=== PATIENT | female | born 2000 | race Caucasian/White ===

== ENCOUNTER → 2020-04-21 | Outpatient (CLI) | payer OTHER, SELFPAY | END | disposition home or self-care (01) | PROVIDERS: Visit Provider Obstetrics & Gynecology | DX: Z12.4 Encounter for screening for malignant neoplasm of cervix (principal); Z11.3 Encounter for screening for infections with a predominantly sexual mode of transmission ==

== ENCOUNTER 2020-07-12 05:55 | Emergency (ER) | payer OTHER, SELFPAY ==
[2020-07-12 05:56] VITALS: BP 135/80; PULSE 74; RESP 15; TEMP 36.4; O2SAT 100; BMI 21.1
[2020-07-12 05:59] VITALS: BP 135/80; PULSE 74; RESP 15; TEMP 36.4; O2SAT 100
--- NOTE | 2020-07-12 06:06 | ED.VIS.GEN ---
History of Present Illness Chief Complaint: Complaint Informant: Patient Onset: Today Context: Sudden Onset Timing: Continuous Current Severity: Moderate Maximum Severity: Moderate Narrative: The patient is a 20-year-old female that presents to the emergency department with dysuria. The patient states her symptoms began rather acutely overnight. She states that she has had urinary frequency and urgency. She denies any fevers or chills. She states that she tried to drink a lot of water hoping would help the symptoms but it seemed to make them worse. She has no significant medical history. She has no history of immunosuppression. She is on no daily medications. She does admit to sexual activity but denies any bleeding or discharge. Prior similar symptoms: No Recent Illness/Hospitalization: No Past Medical History - Allergies and Home Meds Allergies/Adverse Reactions: Allergies No Known Allergies Allergy (Verified 07/12/20 05:59) Primary Care Physician: Lilliana Crocker CNM [Primary Care Provider] - Prior records reviewed: Yes Past Medical History: None Surgical History: no surgical history Smoking Status: Never smoker Review of Systems General: Denies: Chills, Fever, Sweats Eyes: Denies: Visual changes - bilaterally, Diplopia ENT: Denies: Rhinorrhea, Sore throat Cardiovascular: Denies: Chest pain, Palpitations Respiratory: Denies: Dyspnea, Cough, Dyspnea on exertion Gastrointestinal: Denies: Abdominal pain, Nausea, Vomiting, Diarrhea, Melena, Hematochezia Genitourinary: Reports: Dysuria, Frequency. Denies: Hematuria Musculoskeletal: Denies: Back pain, Extremity Pain Skin: Denies: Rash, Wounds Neurological: Denies: Headache, Weakness, Numbness Physical Exam Vital Signs/Narrative: Vital Signs Temp Pulse Resp BP Pulse Ox 07/12/20 05:59 97.5 F L 74 15 135/80 H 100 07/12/20 05:56 97.5 F L 74 15 135/80 H 100 Inital Vital Signs reviewed: Yes General: Well nourished, Well developed, No Acute Distress Head: Normocephalic, Atraumatic Eyes: Perrl, EOMI ENT: Moist mucous membranes, No rhinorrhea Neck: Supple, Nontender Cardiovascular: Regular rate, Regular rhythm, No murmurs Respiratory: No distress, CTA bilaterally, Chest nontender Abdomen: Soft, Nontender, Nondistended, Normal bowel sounds Back: Nontender, Normal Inspection Extremities: Nontender, No edema Skin: Normal color, No rash Neurological: Alert, Oriented x3, Cranial nerves II-XII grossly intact, Normal Strength, Normal Sensation Psychological: Normal affect, Normal Mood Diagnostic/Tx/Re-eval Abnormal Lab Results 07/12/20 07/12/20 06:00 06:00 Urine Color Yellow Urine Clarity Clear Urine pH 7.0 Ur Specific [place] 1.005 Urine Protein 15 H Urine Glucose (UA) Normal Urine Ketones Negative Urine Occult Blood 250 H Urine Nitrite Negative Urine Bilirubin Negative Urine Urobilinogen Normal Ur Leukocyte Esterase 500 H Urine RBC 10-25 SEEN Urine WBC 10-25 SEEN Ur Squamous Epith Cells 0 SEEN Urine Bacteria 0 SEEN Urine Mucus 0 SEEN Urine Test Negative - Medical Decision Making The patient presents with symptoms consistent with acute cystitis. She is had no flank pain. She is had no fever or chills. Her examination is benign. The patient was treated with Pyridium. Urine was obtained. There is evidence of infection. Patient is not . I will treat her with Macrobid and continue Pyridium for symptom control. She was counseled on advancing fluids. She will be discharged home. Impression 1. Acute cystitis ED Disposition - Plan for ED Patient: Instructions: ED CYSTITIS Female Adult Prescriptions: Nitrofurantoin Macrocrystals [Macrobid] 100 mg PO Q12 #14 cap Prescription Printed Phenazopyridine HCl [Pyridium] 200 mg PO BID PRN PRN #10 tab PRN Reason: Pain Prescription Printed Referrals: Lilliana Crocker CNM [Primary Care Provider] -
[2020-07-12] MEDS: Phenazopyridine 95 MG Tablet 190 MG PO (06:07)
[2020-07-12 06:09] LABS: Bacteria 0 SEEN /hpf (None Seen); Color, Urine Yellow (Yellow); Glucose, Dipstick Normal (Normal); Ketone-Dipstick Negative (Negative); Leukocyte Esterase-Dipstick 500 /ul (Negative); Mucous, Urine 0 SEEN /hpf (<or=2+); Nitrite-Dipstick Negative (Negative); Occult Blood-Urine 250 /ul (Negative); Protein-Dipstick 15 mg/dl (Negative); Specific Gravity, Urine 1.005 (1.002-1.030); Squamous Epithelial Cells - UA 0 SEEN /hpf (5-10); Urine Bilirubin Dipstick Negative (Negative); Urine Clarity Clear (Clear); Urine Urobilinogen Normal (Normal)
[2020-07-12 06:16] LABS: Internal QC Validated? YES +Cl - CLEAR BKGD; Pregnancy, Urine Negative Negative; Red Blood Cells-Urine 10-25 SEEN /hpf (0-5); White Blood Cells 10-25 SEEN /hpf (0-5)
[2020-07-12] MEDS: Nitrofurantoin Macrocrystals 100 MG Capsule PO (06:26)
[2020-07-12 06:33] VITALS: RESP 15
== END 2020-07-12 06:34 | disposition home or self-care (01) ==
LOC: ED 06:27
PROVIDERS: Emergency Provider Emergency Medicine
DX: N30.00 Acute cystitis without hematuria (principal)
CPT/HCPCS: 81001; 81025; 99283

== ENCOUNTER 2021-06-17 19:30 | Inpatient (IN) | payer MEDICAID, SELFPAY ==
[2021-06-17 19:36] VITALS: BMI 26.4
[2021-06-17 19:56] VITALS: PULSE 84; O2SAT 97
[2021-06-17 19:57] VITALS: TEMP 36.7
[2021-06-17 19:58] VITALS: BP 127/69; PULSE 81
[2021-06-17 20:25] LABS: Absolute Lymphocyte Count 1.66 X10^3/uL (0.83-4.51); Absolute Neutrophil Count 7.4 X10^3/uL (2.0-7.7); Basophil# 0.03 X10^3/uL; Basophil% 0.3 % (0-1); Eosinophil# 0.07 X10^3/uL; Eosinophils% 0.7 % (0-5); Hematocrit 33.9 % (37-47); Hemoglobin 11.9 g/dL (12.0-15.0); Lymphocyte # 1.66 X10^3/ul (0.83-4.51); Lymphocyte % 16.8 % (19-41); Mean Corp Hgb Conc 35.1 g/dL (32-36); Mean Corpuscular Hgb 30.7 pg (27.0-32.0); Mean Corpuscular Volume 87.6 fL (81-99); Mean Platelet Vol. 10.2 fl (6.2-12.0); Monocyte% 7.1 % (0-10); NRBC Flagged by Analyzer 0 % (0-5); Neutrophil # 7.36 X10^3/uL (2.7-7.7); Neutrophil % 74.2 % (47-70); Platelet Count 263 K/mm3 (150-450); RBC Distribution Width CV 12.7 % (11.6-14.6); RBC Distribution Width SD 40.5 fl (35.1-43.9); Red Blood Count 3.87 M/mm3 (4.2-5.4); White Blood Count 9.9 K/mm3 (4.4-11.0)
[2021-06-17] MEDS: miSOPROStol 25 MCG TABLET PO (21:28)
[2021-06-17] MEDS: Lactated Ringers 1,000 ML 50 ML IV (21:31)
[2021-06-17 21:42] VITALS: BP 104/57; PULSE 70; TEMP 36.9; O2SAT 98
[2021-06-18] VITALS (51 sets, daily range): BP systolic 96–136; BP diastolic 55–84; PULSE 57–143; TEMP 36.3–37.2; O2SAT 83–100
[2021-06-18] MEDS: miSOPROStol 25 MCG TABLET PO ×2 (01:29→05:40)
[2021-06-18 06:02] LABS: Amphetamine Urine VISTA NEGATIVE (<1000 ng/mL); Barbiturate Urine VISTA NEGATIVE (< 200 ng/mL); Benzodiazepine Urine VISTA NEGATIVE (< 200 ng/mL); Cocaine Urine VISTA NEGATIVE (< 300 ng/mL); Ecstacy Urine VISTA NEGATIVE (< 500 ng/mL); Methadone Urine VISTA NEGATIVE (< 300 ng/mL); PCP Urine VISTA NEGATIVE (< 25 ng/mL); THC Urine VISTA NEGATIVE (< 50 ng/mL); Vista UDS pH Range 6
[2021-06-18] MEDS: 0.9% Normal Saline Single 100 ML IV.SOLN. INTRA-UTER (10:37)
--- NOTE | 2021-06-18 10:43 | HP.PCM.OB_ITS ---
HPI - General General Date of Admission: 06/17/21 HPI Narrative NICHOL WALLACE, is a 21 F who presents at 41 weeks for postdates induction of labor with JOSÉ MIGUEL:06/10/21. . OB history of first trimester SAB. Pyelectasis on ultrasound but resolved on 04/20/21. Maternal Data Information JOSÉ MIGUEL Calculator Estimated Delivery Date Method Current WG Current Estimate 06/10/21 Manual 41w 1d PFSH PFSH Medical History (Updated 06/18/21 @ 10:51 by Evelyn Mora CNM) Chlamydia Family history of hearing loss at age younger than 7 years Home Medications [id number] [] 1 tab PO DAILY 06/17/21 [History Last Taken 06/16/21 21:00] Allergy/AdvReac Type Severity Reaction Status Date / Time No Known Allergies Allergy Verified 06/17/21 19:37 Surgical History (Updated 06/17/21 @ 20:16 by Ermelinda Odell) History of surgery [place] teeth removed Social History Smoking Status: Never smoker History Elective abortions Hx Para 0 Spontaneous abortions Hx # Term Pregnancies Ectopic pregnancies Hx # Pregnancies Multiple births # of living children NST FHR Rate Baby A Baseline: 125 Variability:: Moderate Accelerations:: 15 x 15 Decelerations:: Variable FHR Category:: Category II Uterine Activity:: every 2.5 to 4 minutes, moderate ROS Constitutional Constitutional: Reports systems reviewed and no addt'l complaints, except as documented; Denies headache(s) Eyes Eyes: Denies acute decrease in peripheral vision, blurry vision or change in vision ENT HEENT: Reports systems reviewed and no addt'l complaints, except as documented Cardiovascular Cardiovascular: Denies chest pain or dizziness Respiratory/Chest Respiratory/Chest: Denies cough, dyspnea, dyspnea on exertion, shortness of breath at rest or shortness of breath with exertion Gastrointestinal Gastrointestinal: Denies abdominal pain, diarrhea, nausea or vomiting Genitourinary Genitourinary: Denies abdominal discomfort or movement Musculoskeletal Musculoskeletal: Denies limited range of motion Integumentary Integumentary: Reports systems reviewed and no addt'l complaints, except as documented Neurologic Neurologic: Reports systems reviewed and no addt'l complaints, except as documented Psychiatric Psychiatric: Reports systems reviewed and no addt'l complaints, except as documented Endocrine Endocrinology: Reports systems reviewed and no addt'l complaints, except as documented Hematologic/Lymphatic Hematologic/Lymphatic: Reports systems reviewed and no addt'l complaints, except as documented Allergic/Immunologic Allergic/Immunologic: Reports systems reviewed and no addt'l complaints, except as documented Vital Signs Vital Signs Vital Signs: 06/17/21 19:56 06/17/21 19:57 06/17/21 19:58 Temperature 98.1 F Temperature Source Temporal Pulse Rate 84 81 Blood Pressure 127/69 H BP Systolic 127 BP Diastolic 69 Pulse Ox 97 06/17/21 21:42 06/18/21 01:17 06/18/21 05:22 Temperature 98.5 F 98.3 F 97.9 F Temperature Source Temporal Temporal Temporal Pulse Rate 70 64 60 Blood Pressure 104/57 L 102/56 L 112/71 BP Systolic 104 102 112 BP Diastolic 57 56 71 Pulse Ox 98 97 98 06/18/21 07:17 06/18/21 07:18 06/18/21 07:19 Temperature 98.4 F Temperature Source Temporal Pulse Rate 65 64 66 Blood Pressure 105/58 L BP Systolic 105 BP Diastolic 58 Pulse Ox 97 88 06/18/21 09:17 06/18/21 09:18 Temperature 98.0 F Temperature Source Temporal Pulse Rate 72 143 H Blood Pressure 96/56 L BP Systolic 96 BP Diastolic 56 Pulse Ox 98 83 Weight Weight: 163 lb 6.4 oz Body Mass Index (BMI) 26.4 Physical Exam Const alert and oriented x3 General Appearance: cooperative Orientation / Consciousness: awake, oriented to person, oriented to place and oriented to time Exam Limitations: no limitations HEENT normocephalic Head and Scalp: normal to inspection, normocephalic and atraumatic Face and Sinus: normal facial exam Eyes General Eye: normal appearance of both eyes Neck full ROM Chest Chest: symmetrical chest wall rise Resp normal respiratory effort and normal air movement Auscultation: clear to auscultation bilaterally Cardio regular rate, regular rhythm, S1 normal heart sound, S2 normal heart sound, no murmurs, no rub, no gallops and no clicks GI normal to inspection, nondistended, normoactive bowel sounds and non-tender appearance of the vagina normal Narrative: Claire catheter placed through cervical os without difficulty. 30ml of NS instilled. Patient tolerated well. Bladder / Kidney Exam: no CVA tenderness Manual OB Exam: presentation cephalic, dilated 2cm, effaced 70%, station - 1 and other SROM clear fluid Back/Spine normal ROM Extremity normal to inspection and full ROM Skin no rashes or lesions noted Neuro oriented x3, CN's II-XII intact bilaterally and moves all extremities Sensorium / Orientation: awake, alert and oriented to person Motor Exam: clonus absent Deep Tendon Reflexes: Rt Patellar (L4): 2+ and Lt Patellar (L4): 2+ Labs Labs Labs: Blood Type A POSITIVE Antibody Screen NEGATIVE Hct 33.9 % (37-47) L Hgb 11.9 g/dL (12.0-15.0) L Miscellaneous Test COMMENT GC/CT negative COVID negative 1hr GCT 85 RPR non reactive Rubella non immune HBsAG negative HepC negative HIV negative A positive Growth US at 32w4d 41st percentile Assessment & Plan (1) Encounter for induction of labor: (2) Post-dates : PLAN: 1) Admit to labor and delivery 2) Routine labs. Continuous EFM 3) COVID negative 06/13/21 4) GBS negative 5) Cytotec for cervical ripening. SROM and contractions spontaneous. Claire bulb placed and will await contraction pattern. Discussed with patient if contraction spacing option to start pitocin and she is agreeable to plan 6) Would like unmedicated , epidural upon request 7) Category 2 FHT, positional changes 8) notified of patient admission and status
[2021-06-18] MEDS: 0.9% Saline Lock 10 ML Syringe IV ×2 (11:15→16:05)
[2021-06-18] MEDS: Oxytocin 30 units/NS 500 ml 30 UNITS/500 ML IV.SOLN IV (16:21)
[2021-06-18] MEDS: Lactated Ringers 1,000 ML 200 ML IV (17:38)
[2021-06-18] MEDS: fentaNYL 100 MCG/2 ML Ampul IV (19:09)
[2021-06-18] MEDS: Lactated Ringers 500 ML 999 ML IV ×2 (19:32→20:55)
[2021-06-18] MEDS: Ondansetron 4 MG/2 ML Vial IV (20:07)
[2021-06-18] MEDS: fentaNYL-bupivacaine (epidural) 100 ML BAG EPIDURAL (22:16)
[2021-06-18] MEDS: Amnioinfusion- 0.9% NS 1,000 ML IV.SOLN. INTRA-UTER (23:00)
[2021-06-19] VITALS (18 sets, daily range): BP systolic 100–118; BP diastolic 42–67; PULSE 73–95; RESP 16–18; TEMP 36.4–37.2; O2SAT 95–99
--- NOTE | 2021-06-19 00:02 | PCM.PN.BLA ---
Progress Note Called for a prolonged deceleration. At bedside to discuss plan with patient. Position changes and fluid bolus were started. Cvx 6/80/0. Pitocin was at 10 mu/min and turned off. FHT 130/min-mod maria elena/no accels/+variable decels. Recommend section given intolerance to labor. The patient and her significant other state they want to discuss the section prior to proceeding, and they understand my recommendation is to proceed at this time with a section.
[2021-06-19] MEDS: Lactated Ringers 500 ML 999 ML IV (00:15)
--- NOTE | 2021-06-19 00:25 | PCM.OPRPT ---
Problems Associated Problem List Diagnoses (1) Post-dates : (2) intolerance to labor, delivered, current hospitalization: (3) Delivery by section: Report of Operation Date of Procedure: 06/19/21 Pre-Operative Diagnosis: 41 wk gestation, primiparous patient, intolerance to labor Post-Operative Diagnosis: As above Surgery/Procedure Performed:: PLCTS via pfannenstiel incision Description of Surgical Findings:: in vertex presentation. Normal appearing placenta with 3 VC. Normal appearing uterus, bilateral tubes, bilateral ovaries. Surgeon: kelly Type of Anesthesia: Epidural Special Medications: None Specimen's removed: Placenta Drains: Claire Estimated Blood Loss (mL): 800 Fluids Replaced: 600 Description of Procedure: The patient was taken back to the OR where epidural anesthesia was found be adequate. She was prepped and draped in the dorsal position with leftward tilt. A pfannenstiel skin incision was made with a scalpel and this was carried down to the underlying layer of fascia. The fascia was incised in midline and extended laterally using Gregg scissors. The fascia was dissected off the rectus muscles using a combination of sharp and blunt dissection. The rectus muscles were in the midline. The peritoneum was entered sharply with good visualization of the bladder. The incision was extended bluntly. A low transverse incision was made on the uterus with the scalpel. The head of the was delivered through the hysterotomy in a flexed position, followed by the shoulders and body of the without any force or delay. The infant was delivered through a loose nuchal cord x 1. The cord was clamped and cut immediately and the infant was handed off to nursery staff. Cord gases were obtained. Uterus was exteriorized. The placenta was removed. The uterus was cleared of all clot and debris. The uterus was closed with 1-0 Vicryl in a running locked fashion. The hysterotomy was closed with a second imbricating layer of 1-0 Vicryl. Arrista was placed over the hysterotomy. Hysterotomy was hemostatic. Uterus was placed back into the abdomen. The peritoneum was closed with 3-0 Vicryl in running fashion. The fascia was closed with Vicryl in a running fashion. Subcutaneous space was irrigated and made hemostatic with the Bovie cautery, and reapproximated with 3-0 vicryl. The skin was closed with 4-0 monocryl in a subcuticular fashion. Steri-Strips and a dressing were placed. Instrument, sponge, needle counts were correct and patient was taken to recovery in stable condition. Grafts/Implants Used: None Complications None Admit VTE Documentation VTE Present on Admission: No VTE Mechan Device Prophylaxis: SCD's
[2021-06-19] MEDS: Acetaminophen 500 MG Tablet PO (00:43)
[2021-06-19] MEDS: Sodium Citrate/Citric Acid 30 ML UDC PO (00:44)
[2021-06-19] MEDS: Cefazolin 2 GM in 0.9% Normal Saline 100 ML IV (00:48)
[2021-06-19] MEDS: Oxytocin 30 units/NS 500 ml 30 UNITS/500 ML IV.SOLN 167 UNITS IV (02:24)
[2021-06-19] MEDS: 0.9% Saline Lock 10 ML Syringe IV ×5 (03:08→20:53)
[2021-06-19] MEDS: Ketorolac 30 MG/ML Syringe IV ×4 (03:08→20:53)
--- NOTE | 2021-06-19 05:20 | NURSING ---
IV fluid bolus at 0015 for resuscitative measures charted at wrong time, bolus given at 2315 on 06/18/21 and infused at 2346 on 06/18/21
--- NOTE | 2021-06-19 05:30 | NURSING ---
epidural catheter removed at this time, tip intact, pt tolerated well, rated pain 0/10, band-aid applied
--- NOTE | 2021-06-19 05:33 | NURSING ---
pt has indwelling urinary catheter
[2021-06-19] MEDS: Acetaminophen 500 MG Tablet 1000 MG PO ×3 (06:21→18:33)
[2021-06-19] MEDS: Lactated Ringers 1,000 ML 100 ML IV (06:30)
[2021-06-19] MEDS: Nalbuphine 10 MG/ML Ampul 5 MG IV (06:37)
--- NOTE | 2021-06-19 07:20 | NURSING ---
bedside report given to Jaspreet Barcenas RN who is assuming care of pt at this time
[2021-06-19] MEDS: Senna/Docusate Sodium 1 Tablet PO (10:20)
[2021-06-19] MEDS: Enoxaparin 40 MG/0.4 ML Syringe SC (13:01)
[2021-06-20 00:55] VITALS: BP 93/52; PULSE 74; RESP 16; TEMP 37.1
[2021-06-20] MEDS: Acetaminophen 500 MG Tablet 1000 MG PO ×3 (01:00→12:37)
[2021-06-20 01:03] VITALS: BP 100/52
[2021-06-20] MEDS: Ibuprofen 600 MG Tablet PO ×2 (02:12→08:30)
[2021-06-20 04:15] VITALS: BP 103/54; PULSE 64; RESP 16; TEMP 36.6
[2021-06-20 04:53] LABS: Hematocrit 26.3 % (37-47); Hemoglobin 8.8 g/dL (12.0-15.0); Mean Corp Hgb Conc 33.5 g/dL (32-36); Mean Corpuscular Hgb 30.6 pg (27.0-32.0); Mean Corpuscular Volume 91.3 fL (81-99); Mean Platelet Vol. 9.8 fl (6.2-12.0); Platelet Count 201 K/mm3 (150-450); RBC Distribution Width CV 13.2 % (11.6-14.6); RBC Distribution Width SD 43.3 fl (35.1-43.9); Red Blood Count 2.88 M/mm3 (4.2-5.4); White Blood Count 11.3 K/mm3 (4.4-11.0)
[2021-06-20 08:37] VITALS: BP 106/66; PULSE 62; RESP 16; TEMP 36.7
[2021-06-20] MEDS: Enoxaparin 40 MG/0.4 ML Syringe SC (10:03)
[2021-06-20] MEDS: Senna/Docusate Sodium 1 Tablet PO (10:03)
--- NOTE | 2021-06-20 12:07 | PCM.PN.OB ---
Subjective Subjective Pain controlled. Requests discharge. Objective Data Objective Data Vital Signs: Vital Signs Temp Pulse Resp BP Pulse Ox 98.0 F 62 16 106/66 97 06/20/21 08:37 06/20/21 08:37 06/20/21 08:37 06/20/21 08:37 06/19/21 20:58 Oxygen Delivery Method Room Air Weight: 163 lb 6.4 oz Body Mass Index (BMI) 26.4 Intake & Output: Intake and Output for Last 24 Hours 06/18/21 06/19/21 06/20/21 23:59 23:59 23:59 Intake Total 4413.52 / 4413.52 2141.67 / 2141.67 Output Total 1300 / 1300 3640 / 3640 Balance 3113.52 / 3113.52 -1498.33 / -1498.33 Lab / Micro Data Result Diagrams: 06/20/21 04:18 Labs: Laboratory Results - last 24 hr 06/20/21 04:18: WBC 11.3 H, RBC 2.88 L, Hgb 8.8 L, Hct 26.3 L, MCV 91.3, MCH 30.6, MCHC 33.5, RDW Std Deviation 43.3, RDW Coeff of [place] 13.2, Plt Count 201, MPV 9.8 Physical Exam Const alert, oriented x3 and no apparent distress HEENT normocephalic GI soft to palpation, non-tender and non-distended GI Narrative: fundus firm, mid & below umbilicus Incision - bandage c/d/i Extremity normal to inspection and no calf tenderness Assessment & Plan (1) Delivery by section: COMMENT: POD#1 PLAN: Heme - HDS, cbc reviewed ID - AF, no signs infection GI/ - no isues D/c home per patient request
--- NOTE | 2021-06-20 12:09 | PCM.DC ---
Discharge Instructions Diet Discharge Diet: No restrictions Activity Discharge Activity: May Shower May resume sexual activity in: 6 weeks Weight Bearing Status: Weight bearing as tolerated Dressing / Incision Call your doctor if your incision/area has: Continuous Slow Oozing, Sudden Increased Bleeding, Increased Pain/ Swelling, Increased Redness, Foul Smelling Discharge and Swelling at the incision site Call your doctor if you observe: Fever of 101 or Higher, Coldness, Increased Pain, Change in Color, Inability to urinate, Inability to have a bowel movement, Using more than 1 pad per hour, Shortness of breath, Dizziness, Fainting spells, Chest pain, Increased palpitations (irregular heartbeat), Calf discomfort and Uncontrolled pain Suture Line Care: Avoid Pulling/Pushing and Avoid Pinching/Bending Remove Dressing in: 1 week Cleanse incision/area with: Soap & Water Follow Up Care Please Follow Up With: Shanna Singh DO When: Follow up in 2 and 6 weeks for visits. Test Results: Test results from this visit will be discussed in further detail at your follow-up appointment, if applicable. Discharge Plan Admission Admit Date/Time: 06/17/21 19:30 Primary Reason for Your Visit: section Attending Provider: Shanna Signh Primary Care Provider: Care Physician,Sudha Primary Discharge Orders/Prescriptions Prescriptions: New acetaminophen 500 mg Tablet 1,000 mg PO Q6H Qty: 0 RF: 0 ibuprofen 600 mg Tablet 600 mg PO Q6H Qty: 0 RF: 0 oxycodone 5 mg Tablet 5 mg PO Q8H PRN PRN (Reason: Pain Score 4-10) Qty: 0 RF: 0 Continued [id number] 1 mg Tablet 1 tab PO DAILY RF: 0 Referrals / Follow Up: Care Physician,No Primary [Primary Care Provider] - Disposition Disposition (needs filled in before D/C Order can be placed): Home, Self Care
== END 2021-06-20 13:55 | disposition home or self-care (01) | DRG 540 ==
PROVIDERS: Admitting Provider Obstetrics & Gynecology; Referring Provider Advanced Practice Midwife; Visit Provider Obstetrics & Gynecology
DX: O48.0 Post-term pregnancy (principal); Z3A.41 41 weeks gestation of pregnancy; O69.81X0 Labor and delivery complicated by cord around neck, without compression, not applicable or unspecified; O76 Abnormality in fetal heart rate and rhythm complicating labor and delivery; Z37.0 Single live birth
CPT/HCPCS: 59025; 59050; 80307; 85025; 85027; 86850; 86900; 86901; 99218; J7030; J7120; A4216; G0378; J2405

== ENCOUNTER → 2023-12-09 | Outpatient (CLI) | payer MEDICAID, SELFPAY ==
--- OUTSIDE RECORDS SUMMARY | 2023-12-09 10:20 | XMS RPT_ITS | CCD ---
Author Name Unknown Address [address] [place] [address] Organization [facility] Care Team Providers Care Multimedia Author Name Role Phone Unavailable Unavailable Unavailable Cutter Hand, Elio Garrison Unavailable Unavaila ble Cutter Hand, Elio Garrison Unavailable Unavaila ble Cutter Hand, Elio Garrison Unavailable Unavaila ble Cutter Hand, Elio Garrison Unavailable Unavaila ble CLINGMAN, ANTONI A Unavailable Unavailable CLINGMAN, ANTONI A Unavailable Unavailable Unavailable Primary Care Provider Unavailsiddhartha Maxwell MD, Riley Corrales Unavailable [phone] Generic Provider MD, No Assigned Pcp Primary Car e Provider Unavailable GENERIC PROVIDER, NO ASSIGNED PCP Primary Care Unavailable ROBERTA SOLIMAN Attending Unavailable Unavailable Primary Care Provider UnavailNOLA Barker Attending Unavailable DELICIA, NOLA Attending Unavailable NOLA QUINTANA Attending Unavailable CORAL MORA Attending Unavailable NAY MORASSICA Referring Unavailable MORA, CORAL Referring Unavailable MORA, CORAL Attending Unavailable REGINE, CORAL Attending Unavailable DELICIA, NOLA Referring Unavailable Medications Completed/Discontinued Medications Medication Drug Class(es) Dates Sig (Normalized) Sig (Original) amoxicillin 875 mg oral tablet (8 sources) Penicillin-class Antibacterial Start: 08-06-2023 End: 08-13-2023 amoxicillin (AMOXIL) 875 mg tablet etonogestrel 68 mg drug implant (5 sources) Progestin Start: 08-10-2021 End: 08-09-2024 etonogestrel (NEXPLANON) subdermal implant 68 mg Indications: Insertion of implantable subdermal contraceptive 1 Each by SUBDERMAL route as directed. 1 Each 0 08/10/2021 08/12/2023 Discontinued (Course of therapy completed) Problems Active Problems Problem Classification Problem Date Documented Da te Episodic/Chronic Abdominal pain (1 source) Finding of sensation of abdomen; Translations: [Unspecified abdominal pain] 11-29-2023 Episodic Contraceptive and procreative management (2 sources) Subcutaneous contraceptive implant present; Translations: [Encounter for surveillance of implantable subdermal contraceptive] Episodic Diabetes mellitus without complication (2 sources) Abnormal glucose tolerance test; Translations: [Other abnormal glucose] Onset: 12-02-2023 12-02-2023 Episodic Other gastrointestinal disorders (1 source) Diarrhea; Translations: [Diarrhea, unspecified] 11-29-2023 Episodic Other gastrointestinal disorders (1 source) Abdominal bloating; Translations: [Abdominal distension (gaseous)] 11-29-2023 Episodic Other screening for suspected conditions (not mental disorders or infectious disease) (2 sources) Bilateral ultrasonography of kidneys abnormal; Translations: [Abnormal radiologic findings on diagnostic imaging of right kidney] Onset: 10-01-2023 10-01-2023 Episodic Other skin disorders (1 source) Swollen gums; Translations: [Localized swelling, mass and lump, head] 08-06-2023 Episodic Other skin disorders (2 sources) Localized swelling, mass and lump, head; Translations: [Localized swelling, mass and lump, head] Onset: 08-06-2023 Episodic Residual codes; unclassified (1 source) Gestation period, 13 weeks; Translations: [13 weeks gestation of ] 08-19-2023 Episodic Residual codes; unclassified (1 source) Gestation period, 27 weeks; Translations: [27 weeks gestation of ] 11-29-2023 Episodic Residual codes; unclassified (1 source) 23 weeks gestation of ; Translations: [23 weeks gestation of ] Onset: 11-29-2023 Episodic Past or Other Problems Problem Classification Problem Date Documented Da te Episodic/Chronic Disorders of teeth and jaw (14 sources) Infection of tooth; Translations: [Periapical abscess without sinus] Onset: 08-06-2023 08-06-2023 Episodic Gastrointestinal hemorrhage (11 sources) Blood-tinged feces; Translations: [Melena] Onset: 10-18-2020 10-18-2020 Episodic Genitourinary symptoms and ill-defined conditions (1 source) Dysuria; Translations: [Dysuria] Onset: 06-24-2017 Episodic Other complications of (12 sources) Rubella non-immune; Translations: [Supervision of other high risk pregnancies, unspecified trimester] Onset: 11-22-2020 1 Episodic Other complications of (14 sources) High risk ; Translations: [Supervision of high risk , unspecified, second trimester] Onset: 12-19-2020 12-19-2020 Episodic Other complications of (11 sources) Nausea and vomiting; Translations: [Vomiting of , unspecified] Onset: 08-08-2023 08-08-2023 Episodic Other complications of (1 source) Supervision of high risk , unspecified, second trimester; Translations: [Supervision of high risk in second trimester] Onset: 12-19-2020 Episodic Other complications of (1 source) Supervision of high risk , unspecified, first trimester; Translations: [Supervision of high risk in first trimester] Onset: 08-12-2023 Episodic Other infections; including parasitic (11 sources) History of chlamydial infection; Translations: [Personal history of other infectious and parasitic diseases] Onset: 10-18-2020 10-18-2020 Episodic Other and delivery including normal (4 sources) with uncertain dates; Translations: [Encounter for supervision of normal , unspecified, first trimester] Onset: 08-12-2023 08-12-2023 Episodic Previous (11 sources) ; Translations: [Maternal care for unspecified type scar from previous delivery] Onset: 08-08-2023 08-08-2023 Episodic Residual codes; unclassified (2 sources) Down's child in family; Translations: [Family history of other congenital malformations, deformations and chromosomal abnormalities] Onset: 10-18-2020 10-18-2020 Episodic Residual codes; unclassified (4 sources) ultrasound scan abnormal; Translations: [Pyelectasis of fetus on ultrasound] Onset: 01-16-2021 04-20-2021 Episodic Residual codes; unclassified (11 sources) FH: Chromosomal anomaly; Translations: [Family history of other congenital malformations, deformations and chromosomal abnormalities] Onset: 10-18-2020 08-08-2023 Episodic NEGATED: Highlighted row has been ruled out!Unclassified (1 source) No known active problems 08-06-2023 Results Test Name Value Interpretation Reference Range Facil ity Vital Signs Date Time Vital Sign Value Performing Clinician Facility 11-29-2023 14:35-0500 Body weight 66.22 kg Coral Mora LABORER PIPELINE.CNM Work Phone: [facility] 11-29-2023 14:35-0500 Diastolic blood pressure 60 mm[Hg] Coral Mora LABORER PIPELINE.CNM Work Phone: [facility] 11-29-2023 14:35-0500 Systolic blood pressure 92 mm[Hg] Coral Mora LABORER PIPELINE.CNM Work Phone: [facility] 08-19-2023 13:22-0500 Body weight 59.42 kg Nola Haury LABORER PIPELINE.CALL CENTER NURSE Work Phone: [facility] 08-19-2023 13:22-0500 Diastolic blood pressure 58 mm[Hg] Nola Haury LABORER PIPELINE.CALL CENTER NURSE Work Phone: [facility] 08-19-2023 13:22-0500 Systolic blood pressure 104 mm[Hg] Nola Haury LABORER PIPELINE.CALL CENTER NURSE Work Phone: [facility] 08-12-2023 13:15-0400 Body weight 59.69 kg Coral Mora LABORER PIPELINE.CNM Work Phone: [facility] 08-12-2023 13:15-0400 Diastolic blood pressure 64 mm[Hg] Coral Mora LABORER PIPELINE.CNM Work Phone: [facility] 08-12-2023 13:15-0400 Systolic blood pressure 110 mm[Hg] Coral Mora LABORER PIPELINE.CNM Work Phone: [facility] 08-06-2023 16:46-0400 Body height 167.6 cm Roberta Soliman APRN-CALL CENTER NURSE Work Phone: [facility] 08-06-2023 16:46-0400 Body mass index (BMI) [Ratio] 20.98 kg/m2 Roberta Soliman LABORER PIPELINE-CALL CENTER NURSE Work Phone: [facility] 08-06-2023 16:46-0400 Body temperature 97.81 [degF] Roberta Soliman APRN-CALL CENTER NURSE Work Phone: [facility] 08-06-2023 16:46-0400 Body weight 58.97 kg Roberta Joshivasquez LABORER PIPELINE-CALL CENTER NURSE Work Phone: [facility] 08-06-2023 16:46-0400 Diastolic blood pressure 73 mm[Hg] Roberta Joshivasquez LABORER PIPELINE-CALL CENTER NURSE Work Phone: [facility] 08-06-2023 16:46-0400 Heart rate 62 /min Roberta Joshivasquez LABORER PIPELINE-CALL CENTER NURSE Work Phone: [facility] 08-06-2023 16:46-0400 Respiratory rate 16 /min Roberta Joshivasquez LABORER PIPELINE-CALL CENTER NURSE Work Phone: [facility] 08-06-2023 16:46-0400 SaO2% (BldA) [Mass fraction] 100 % Roberta Adivasquez LABORER PIPELINE-CALL CENTER NURSE Work Phone: [facility] 08-06-2023 16:46-0400 Systolic blood pressure 117 mm[Hg] Roberta Soliman LABORER PIPELINE-CALL CENTER NURSE Work Phone: [facility] 08-14-2022 14:44-0400 Body weight 66.68 kg Darling Harkins APRN.CALL CENTER NURSE Work Phone: [facility] 08-14-2022 14:44-0400 Diastolic blood pressure 62 mm[Hg] Darling Harkins APRN.CALL CENTER NURSE Work Phone: [facility] 08-14-2022 14:44-0400 Systolic blood pressure 98 mm[Hg] Darling Harkins APRN.CALL CENTER NURSE Work Phone: [facility] Encounters Encounter Date Encounter Type Care Provider Facility Start: 12-02-2023 Telephone encounter Nola wilkins APRN.CALL CENTER NURSE Work Phone: OB/Gynecology Procedures Date Procedure Procedure Detail Performing Clinician Start: 11-29-2023 URINE OB DIP B/O Carolyn Mora APRN.CNM Work Phone: Start: 08-19-2023 URINE OB DIP B/O Nola Quintana LABORER PIPELINE.CALL CENTER NURSE Work Phone: Start: 08-12-2023 Antibody screen NOLA FLETCHER Plan of Treatment Date Care Activity Detail Author Start: 2048 Zoster Vaccines (1 of 2) Zoste r Vaccines (1 of 2) [facility] Start: 03-23-2031 DTaP/Tdap/Td Vaccine s (2 - Td or Tdap) DTaP/Tdap/Td Vaccines (2 - Td or Tdap) [facility] Start: 03-23-2031 Urine microalbumin profile [facility] Start: 12-02-2023 End: 03-02-2024 GEST GLUC MARAL, 3-HR, 100 GM, FASTING GEST GLUC MARAL, 3-HR, 100 GM, FASTING Lab Routine Elevated glucose tolerance test Expected: 12/02/2023, Expires: 03/02/2024 [facility] Work Phone: Immunizations Immunization Date Immunization Notes Care Provider Riya strauss 03-23-2021 tetanus toxoid, redu sohail diphtheria toxoid, and acellular pertussis vaccine, adsorbed Darling Harkins APRN.[facility] Work Phone: [facility] Work Phone: Payers Date Payer Category Payer Unknown [facility] [id number] 2023-Present P Kai Berrios [address] [place] [address] [id number] 2021 Medicaid [id number] 2016 Unknown [id number] 1998 Unknown [id number] Social History Date Type Detail Facility Start: 01-22-2018 Tobacco smoking status WVIS Unknown if ever smoked [facility] Start: 2000 Sex Assigned At Not on file [facility] Start: 10-18-2020 End: 08-12-2023 Tobacco smoking status NHIS Never smoked tobacco [facility] Start: 10-18-2020 End: 08-12-2023 Tobacco use and exposure Smokeless tobacco non-user [facility] Start: 08-10-2021 End: 11-29-2023 Alcohol intake Ex-drinker (finding) [facility] Start: 08-06-2023 Alcohol intake Lifetime non-drinker (finding) [facility] Work Phone: Start: 08-06-2023 End: 08-08-2023 History of Social function [facility] Work Phone: Start: 08-06-2023 End: 08-08-2023 Tobacco use panel [facility] Work Phone: Start: 08-06-2023 Sexual orientation Heterosexual (finding) [facility] Start: 07-27-2023 End: 08-06-2023 Exposure to SARS-CoV-2 (event) Not sure [facility] Work Phone: National Score (1-10 0), lower number is lower risk 71 [facility] Start: 08-08-2023 Education 14 [facility] Start: 06-02-2023 [facility] Goals Date Patient Goal Desired Activity /State Personal health goal Clinical Notes 10-18-2020 to 12-04-2023 Telephone Encounter - Mary Garcia RN - 12/04/2023 10:50 AM ESTPrenatal Quick Notes - Coral Mora APRN.CN - 11/29/2023 2:38 PM ESTPatient InstructionsPatient InstructionsPatient Instructions Note Date & Type Note Facility 12-04-2023 Miscellaneous Notes Called and notified patient. She wants to complete the 3 hour GTT with fresh test at [facility]. Order faxed. Mary Garcia RN documented in this encounter [facility] 11-29-2023 Miscellaneous Notes BARON-S: Radha Sanford is a 23 year old female who presents at 27w5d with JOSÉ MIGUEL:02/23/2024, by Last Menstrual Period for a routine visit. Denies headache, visual changes, chest pain, shortness of breath, vaginal bleeding, leakage of fluid, or dysuria. Increased diarrhea since of first child. Was doing elimination diet in the fall but became . Gets bloating, cramping, and diarrhea, wondering if IBS. O: See flow sheet Gen: No apparent distress Abd: Gravid, nontender S<D ASSESSMENT/PLAN: 1. 27 weeks gestation of 2. Supervision of high risk in second trimester - 1 hour GCT, CBC, and RPR today - A positive - TDAP, declines - LARC form reviewed and signed. Patient declines - Depression screen negative - Opioid screen negative - plan form discussed and given to patient. Patient desires TOLAC, will sign consent next visit, awaiting op report. - PTL precautions and kick counts reviewed - RTO- 2 weeks or sooner if needed -Growth US at 32 weeks - GI referral Coral Mora APRN.CNM documented in this encounter [facility] 11-29-2023 Instructions Coral Mora APRN.CNM - 11/29/2023 2:34 PM EST [facility] SIBO SIGNS AND SYMPTOMS OF LABOR 1. Contractions every 10 minutes or more often 2. Clear, pink, or brownish fluid (water) leaking from vagina 3. Feeling that baby is pushing down, pressure 4. Low, dull backache 5. Cramps that feel like a period 6. Cramps with or without diarrhea If you notice any of the above symptoms, contact our office at [phone] and ask to speak with a nurse. After hours, you can call doctors registry at [phone] OR call [facility] at [phone] and ask to have the doctor armed custom protection officer paged. If you consider this an emergency, dial 9-6 or go to your nearest emergency department. NEED HELP? Are you dealing with a violent or abusive relationship? Are you a victim of rape or sexual assult? Call [facility] ([place]) 24 hour Crisis Hotline: 793.518.7725 or 884-420-1116. MANUAL Your Guide to a Healthy manual is now on-line. Visit [email or web address] [email or web address] to download your free copy documented in this encounter [facility] 09-16-2023 Miscellaneous Notes Ok to send letter. Nola Quintana APRN.CALL CENTER NURSE 17w1d Patient has been seeking treatment with [facility] in [place] for healthcare prof. States now that she is , they need a letter from her doctor that it's ok to continue while . If a letter is OK, patient would like it sent to her Mychart. Katie Rosales RN documented in this encounter [facility] 08-19-2023 Miscellaneous Notes S: Radha Sanford is a 23 year old female who presents at 13w1d for a routine visit. Denies headache, visual changes, chest pain, shortness of breath, vaginal bleeding, leakage of fluid, or dysuria. Feeling well, no complaints. Had NT Scan today, results pending. O: See flow sheet Gen: No apparent distress ASSESSMENT/PLAN: 1. 13 weeks gestation of - ICD9: V22.2, ICD10: Z3A.13 (primary diagnosis) - URINE OB DIP B/O - NT Scan today - Reviewed [id number] - Declines AFP: reviewed use as screening for NTD. Done between 16-18 weeks. Pt. Verbalizes understanding and declines. 2. Encounter for supervision of normal first in second trimester - ICD9: V22.0, ICD10: Z34.02 - Still nauseated - Taking Vitamin B6, declines rx - RTO in 4 weeks or sooner as needed 3. Rubella non-immune status, antepartum - ICD9: 646.83, V15.83, ICD10: O09.899, Z28.39 - Plan for MMR vaccine if patient desires - Reviewed with patient Nola Quintana APRN.CALL CENTER NURSE documented in this encounter [facility] 08-19-2023 Instructions Latesha Singer Ma - 08/19/2023 1:01 PM EST SEQUENTIAL SCREENINGS The [facility] offers sequential screenings for women who are interested in screenings for chromosomal abnormalities and certain defects during a . The sequential screen combines ultrasound and blood tests to determine the risk of chromosomal abnormalities, including Down's Syndrome (Trisomy 21) and Trisomy 18, as well as open neural tube defects including spina bifida. Ultrasound examination is performed between 11 weeks and 13 weeks gestational age. Blood tests are drawn after the ultrasound and again later in the between 15 and 21 weeks gestational age. Please let your physician know if you are interested in this testing. It will require an appointment with our echocardiograph technician. This is not an ultrasound performed by a physician in our office during a routine visit. SIGNS AND SYMPTOMS OF LABOR 1. Contractions every 10 minutes or more often 2. Clear, pink, or brownish fluid (water) leaking from vagina 3. Feeling that baby is pushing down, pressure 4. Low, dull backache 5. Cramps that feel like a period 6. Cramps with or without diarrhea If you notice any of the above symptoms, contact our office at [phone] and ask to speak with a nurse. After hours, you can call doctors registry at [phone] OR call [facility] at [phone] and ask to have the doctor armed custom protection officer paged. If you consider this an emergency, dial 9-1-9 or go to your nearest emergency department. NEED HELP? Are you dealing with a violent or abusive relationship? Are you a victim of rape or sexual assult? Call [facility] ([place]) 24 hour Crisis Hotline: 406.580.9262 or 963-088-9144. MANUAL Your Guide to a Healthy manual is now on-line. Visit [email or web address] [email or web address] to download your free copy documented in this encounter [facility] 08-13-2023 Miscellaneous Notes 1st risk assessment form submitted August 13, 2023. TOMÁS Vaughn, RN OB Clinical Navigator [phone] documented in this encounter [facility] 08-12-2023 Note HNO ID: [id number] Author: Coral Mora APRN.CNM Service: ? Author Type: Forest Worker Type: Progress Notes Filed: 08/12/2023 5:38 PM Note Text: OB point of care ultrasound was performed. See imaging tab for details. Coral Mora APRN.CNM [facility] 08-12-2023 History of Presen t illness Narrative OB point of care ultrasound was performed. See imaging tab for details. Coral Mora APRN.CNM documented in this encounter [facility] 08-12-2023 Note HNO ID: [id number] Author: Coral Mora APRN.CNM Service: ? Author Type: Forest Worker Type: Progress Notes Filed: 08/12/2023 2:18 PM Note Text: INITIAL OB ASSESSMENT OB Provider: Coral Mora APRN CNM HPI: Radha is a 23 year old White here to establish Obstetrical Care. Patient's last menstrual period was 05/19/2023 (exact date). from OB Dating Form. Cycles regular was planned Complaints: None OB History T1 L1 SAB1 IAB0 Ectopic0 Multiple0 Live Births1 # 1 - Date: 05/2020, Sex: None, Weight: None, GA: 5w0d, Delivery: None, Apgar1: None, Apgar5: None, Living: None, Comments: Patient states that it was a chemical # 2 - Date: 06/19/21, Sex: Male, Weight: 7 lb 2 oz (3.232 kg), GA: 41w2d, Delivery: , Low Transverse, Apgar1: None, Apgar5: None, Living: Living, Comments: postdates induction, c/s for intolerance, EBL 800mL, loose nuchal cord x1 # 3 - Date: None, Sex: None, Weight: None, GA: None, Delivery: None, Apgar1: None, Apgar5: None, Living: None, Comments: None Previous history: Prior : yes x 1 History of 4th degree laceration: No History of shoulder dystocia: No History of Hypertensive disorders including pre-eclampsia, chronic hypertension or gestational hypertension: No History of gestational diabetes: No Patient's Risk Screening for delivery: Have you had a prior mora between 20w and 36w6d?: No MEDICAL/PSYCHOSOCIAL HISTORY: History of hemorrhage or bleeding concerns: No Thyroid Disease: No History of chronic hypertension: No History of pre-existing diabetes: No ABO/RH(D) Date Value Ref Range Status 11/21/2020 A POSITIVE Final BMI 20.77 kg/(m2) History of abnormal pap: No Prior treatment for cervical dysplasia: none. History of STDs: None Tobacco use: No Caffeine use: No Drug use: No Alcohol use: No Multivitamin with Folic acid: Yes Temple or heritage: No Would refuse blood transfusion if medically necessary: No Are you currently employed? No Do you have any history of depression, anxiety, PTSD, eating disorders or other mood problems: No Do you have any safety concerns or history of traumatic events that you would like to discuss with your provider: No SDOH Screening: How often does this describe you? I don't have enough money to pay my bills: Never Within the past 12 months, have you worried that your food would run out before you had money to buy more: Never In the past 12 months, has lack of reliable transportation kept you from going to medical appointments or work, or from keeping things needed for daily living: Never In the past 12 months, have you had any concerns about having a place to live, or about the condition or quality of your housing: Never Are there any cultural or spiritual needs we should be aware of: No Depression/Anxiety Screening: denies symptoms of depression. OB Depression and Anxiety Screening- This Encounter (since 08/07/2023) Over the past 2 weeks have you felt down, depressed, or hopeless? Negative Over the past two weeks, have you felt little interest or pleasure in doing things?? Negative Feeling nervous, anxious or on edge 0-Not at all Not being able to stop or control worrying 0-Not al all Anxiety Pre-Screening Total (If >/= 3 additional questions will be reviewed) 0 Genetic Screening: Partner present: No Patient verbalized knowledge of partner family health history: Yes Do you or your partner have any personal or family history of defects not previously discussed: No Do you have history of a complicated by anomaly, genetic condition, or demise: No ACOG Recommended Screening Screening for early gestational diabetes testing: Criteria for early testing requires elevated BMI plus one other risk factor: BMI 20.77 kg/(m2) (risk factor if > than 25 or 23 in Americans) Additional risk factors: None She does not meet ACOG criteria for early gestational DM screening. Screening for low dose aspirin use for the prevention of pre-eclampsia: Low dose aspirin should be considered if the patient has one high or two moderate risk factors: High risk factors: None Moderate risk ractors: None She does not meet criteria for low dose ASA Marital Status: Partner: Name: Juan Manuel Sanford Age: 28 Occupation: Self employed [employer] Gender: Male History of STDs: None PAST MEDICAL HISTORY Diagnosis Date Chlamydia age 16 Hemorrhoid PAST SURGICAL HISTORY Procedure Laterality Date DELIVERY ONLY 06/19/2021 LTCS NEXPLANON INSERTION Left 08/10/2021 removed 08/14/2022 PAST SURGICAL HISTORY OF LEFT BIG TOE SURGERY at age 16 Current Outpatient Medications Medication Sig Dispense Refill amoxicillin (AMOXIL) 875 mg tablet 181-iron fum-folate 15 mg iron- 1,750 mcg DF (more content not included)... [facility] 08-12-2023 Miscellaneous Notes Addended by: CORAL MORA on: 08/12/2023 02:38 PM Modules accepted: Orders Addended by: CORAL MORA on: 08/12/2023 02:19 PM Modules accepted: Orders BARON-NOB visit, see progress note. Coral Mora APRN.CNM documented in this encounter [facility] 08-12-2023 History of Presen t illness Narrative INITIAL OB ASSESSMENT OB Provider: Coral Mora APRN CNM HPI: Radha is a 23 year old White here to establish Obstetrical Care. Patient's last menstrual period was 05/19/2023 (exact date). from OB Dating Form. Cycles regular was planned Complaints: None OB History T1 L1 SAB1 IAB0 Ectopic0 Multiple0 Live Births1 # 1 - Date: 05/2020, Sex: None, Weight: None, GA: 5w0d, Delivery: None, Apgar1: None, Apgar5: None, Living: None, Comments: Patient states that it was a chemical # 2 - Date: 06/19/21, Sex: Male, Weight: 7 lb 2 oz (3.232 kg), GA: 41w2d, Delivery: , Low Transverse, Apgar1: None, Apgar5: None, Living: Living, Comments: postdates induction, c/s for intolerance, EBL 800mL, loose nuchal cord x1 # 3 - Date: None, Sex: None, Weight: None, GA: None, Delivery: None, Apgar1: None, Apgar5: None, Living: None, Comments: None Previous history: Prior : yes x 1 History of 4th degree laceration: No History of shoulder dystocia: No History of Hypertensive disorders including pre-eclampsia, chronic hypertension or gestational hypertension: No History of gestational diabetes: No Patient's Risk Screening for delivery: Have you had a prior mora between 20w and 36w6d?: No MEDICAL/PSYCHOSOCIAL HISTORY: History of hemorrhage or bleeding concerns: No Thyroid Disease: No History of chronic hypertension: No History of pre-existing diabetes: No ABO/RH(D) Date Value Ref Range Status 11/21/2020 A POSITIVE Final BMI 20.77 kg/(m^2) History of abnormal pap: No Prior treatment for cervical dysplasia: none. History of STDs: None Tobacco use: No Caffeine use: No Drug use: No Alcohol use: No Multivitamin with Folic acid: Yes Temple or heritage: No Would refuse blood transfusion if medically necessary: No Are you currently employed? No Do you have any history of depression, anxiety, PTSD, eating disorders or other mood problems: No Do you have any safety concerns or history of traumatic events that you would like to discuss with your provider: No SDOH Screening: How often does this describe you? I don't have enough money to pay my bills: Never Within the past 12 months, have you worried that your food would run out before you had money to buy more: Never In the past 12 months, has lack of reliable transportation kept you from going to medical appointments or work, or from keeping things needed for daily living: Never In the past 12 months, have you had any concerns about having a place to live, or about the condition or quality of your housing: Never Are there any cultural or spiritual needs we should be aware of: No Depression/Anxiety Screening: denies symptoms of depression. OB Depression and Anxiety Screening- This Encounter (since 08/07/2023) Over the past 2 weeks have you felt down, depressed, or hopeless? Negative Over the past two weeks, have you felt little interest or pleasure in doing things? Negative Feeling nervous, anxious or on edge 0-Not at all Not being able to stop or control worrying 0-Not al all Anxiety Pre-Screening Total (If >/= 3 additional questions will be reviewed) 0 Genetic Screening: Partner present: No Patient verbalized knowledge of partner family health history: Yes Do you or your partner have any personal or family history of defects not previously discussed: No Do you have history of a complicated by anomaly, genetic condition, or demise: No ACOG Recommended Screening Screening for early gestational diabetes testing: Criteria for early testing requires elevated BMI plus one other risk factor: BMI 20.77 kg/(m^2) (risk factor if > than 25 or 23 in Americans) Additional risk factors: None She does not meet ACOG criteria for early gestational DM screening. Screening for low dose aspirin use for the prevention of pre-eclampsia: Low dose aspirin should be considered if the patient has one high or two moderate risk factors: High risk factors: None Moderate risk ractors: None She does not meet criteria for low dose ASA Marital Status: Partner: Name: Juan Manuel Sanford Age: 26 Occupation: Self employed [employer] Gender: Male History of STDs: None PAST MEDICAL HISTORY Diagnosis Date Chlamydia age 16 Hemorrhoid PAST SURGICAL HISTORY Procedure Laterality Date DELIVERY ONLY 06/19/2021 LTCS NEXPLANON INSERTION Left 08/10/2021 removed 08/14/2022 PAST SURGICAL HISTORY OF LEFT BIG TOE SURGERY at age 16 Current Outpatient Medications Medication Sig Dispense Refill amoxicillin (AMOXIL) 875 mg tablet 181-iron fum-folate 15 mg iron- 1,750 mcg DFE tab Take by mouth. etonogestrel (NEXPLANON) subdermal implant 68 mg 1 Each by SUBDERMAL route as directed. (Patient not taking: Reported on 08/08/2023) 1 Each 0 Ferrous Sulfate (SLOW FE) 142 mg (45 mg iron) TbER Take 3 tablets by mouth once daily. (Patient not taking: Reported on 07/31/2021 ) 30 tablet 1 PNV Comb No.59/Iron/FA/DHA (-DHA ORAL) Take by mouth. (Patient not taking: Reported on 08/14/2022) No current facility-administered medications for this visit. Allergies As of Date: 08/12/2023 (No Known Allergies) Fully Assessed 08/08/2023 Does patient have penicillin allergy: No REVIEW OF SYSTEMS: GENERAL: Negative for: Fever or Chills HEENT: Negative for: Headache, Impaired Vision, Ringing in Ears, Nosebleeds NECK: Negative for: Swelling, Pain, Stiffness RESPIRATORY: Negative for: Cough, Shortness of breath, Wheezing GASTROINTESTINAL: Negative for: Heartburn, Constipation, Diarrhea, Blood in stool, Vomiting MUSCULOSKELETAL: Negative for: Muscle or joint pain, stiffness, Joint swelling NEUROLOGIC/PSYCHIATRIC: Negative for: Weakness, Paralysis, Numbness, Tingling, Tremor, Anxiety, Depression, Memory loss SKIN: Negative for: Rash, Itching GENITOURINARY: Negative for: vaginal itching, vaginal discharge, hematuria or dysuria PHYSICAL EXAM: BP 110/64 Wt 131 lb 9.6 oz (59.7kg) LMP 05/19/2023 GENERAL: pleasant in no apparent distress DERMATOLOGY: Normal, without lesions, non-icteric, and non-hirsute NECK: Supple, full range of motion, no adenopathy, and thyroid normal CHEST: Clear to auscultation, Normal inspiratory effort, Regular rate and rhythm, and No murmurs, clicks, rubs or gallops BREAST: soft, non-tender, symmetric, no dominant mass, normal nipple-areolar complex, no lymphadenopathy, and no nipple discharge ABDOMEN: soft, non-tender, and no masses NEURO: alert and oriented x3,exam grossly non-focal PELVIS: External genitalia normal without lesions. Perineal body intact. No vaginal or cervical lesions. Cervix closed. Uterus 12 week size. No adnexal masses or tenderness. Clinical Pelvimetry: Pelvimetry clinically assessed as adequate Limited OB ultrasound exam: single intrauterine , positive cardiac activity, crown-rump length 12w2d, and normal bilateral adnexa OB Risk Screening: Completed, no positive findings documented. ASSESSMENT: 23 year old at 12w1d wks gestational age PLAN: 1) Patient oriented to practice. Patient given new OB orientation folder. Discussed nutrition, folic acid supplementation, dietary guidelines, exercise, smoking, alcohol, caffeine, and drug use. Discussed gestational weight gain guidelines. Discussed routine OB labs including STD/HIV. Discussed how to access Your guide to a health and the [employer]. Discussed aneuploidy and carrier screening. Regarding aneuploidy screening, nuchal translucency/first trimester early anatomy ultrasound and NIPT were discussed. Regarding carrier screening, the myriad screen was discussed. The risks/benefits and limitations of NIPT/aneuploidy screening were reviewed including the potential for false negative and false positive results. We discussed the availability of professional-society guided carrier screening and reviewed the conditions screened and limitations of screening. The availability of genetic counseling was reviewed. Information on aneuploidy/carrier screening was provided. The patient chooses: Aneuploidy screening: chooses to proceed with NIPT (10 weeks) and Carrier screening: Declines Discussed hemoglobin electrophoresis. Patient: Accepts Reviewed midwifery and livestock farmer services that are available. 2) History of section: Problem list updated, mode of delivery counseling with primary OB provider at the next visit. Follow up in 4 weeks or sooner prn. Coral Mora APRN.CNM documented in this encounter [facility] 08-12-2023 Instructions Roberta Rojas Cma - 08/12/2023 1:11 PM EDT Please select the following link to access the [facility] Your Guide to a Healthy . [email or web address] documented in this encounter [facility] 08-08-2023 Note HNO ID: [id number] Author: Tennille Govea RN Service: ? Author Type: ? Type: Progress Notes Filed: 08/08/2023 1:54 PM Note Text: INITIAL OB ASSESSMENT OB Provider: Tennille Govea RN HPI: Radha is a 23 year old White here to establish Obstetrical Care. Patient's last menstrual period was 05/19/2023 (exact date). from OB Dating Form. Cycles regular was planned Complaints: None OB History T1 L1 SAB1 IAB0 Ectopic0 Multiple0 Live Births1 # 1 - Date: 05/2020, Sex: None, Weight: None, GA: 5w0d, Delivery: None, Apgar1: None, Apgar5: None, Living: None, Comments: Patient states that it was a chemical # 2 - Date: 06/19/21, Sex: Male, Weight: 7 lb 2 oz (3.232 kg), GA: 41w2d, Delivery: , Low Transverse, Apgar1: None, Apgar5: None, Living: Living, Comments: postdates induction, c/s for intolerance, EBL 800mL, loose nuchal cord x1 # 3 - Date: None, Sex: None, Weight: None, GA: None, Delivery: None, Apgar1: None, Apgar5: None, Living: None, Comments: None Previous history: Prior : yes x 1 History of 4th degree laceration: No History of shoulder dystocia: No History of Hypertensive disorders including pre-eclampsia, chronic hypertension or gestational hypertension: No History of gestational diabetes: No Patient's Risk Screening for delivery: Have you had a prior mora between 20w and 36w6d?: No MEDICAL/PSYCHOSOCIAL HISTORY: History of hemorrhage or bleeding concerns: No Thyroid Disease: No History of chronic hypertension: No History of pre-existing diabetes: No ABO/RH(D) Date Value Ref Range Status 11/21/2020 A POSITIVE Final No weight on file for this encounter. History of abnormal pap: No Prior treatment for cervical dysplasia: none. History of STDs: None Tobacco use: No Caffeine use: No Drug use: No Alcohol use: No Multivitamin with Folic acid: Yes Temple or heritage: No Would refuse blood transfusion if medically necessary: No Are you currently employed? No Do you have any history of depression, anxiety, PTSD, eating disorders or other mood problems: No Do you have any safety concerns or history of traumatic events that you would like to discuss with your provider: No SDOH Screening: How often does this describe you? I don't have enough money to pay my bills: Never Within the past 12 months, have you worried that your food would run out before you had money to buy more: Never In the past 12 months, has lack of reliable transportation kept you from going to medical appointments or work, or from keeping things needed for daily living: Never In the past 12 months, have you had any concerns about having a place to live, or about the condition or quality of your housing: Never Are there any cultural or spiritual needs we should be aware of: No Depression/Anxiety Screening: denies symptoms of depression. OB Depression and Anxiety Screening- This Encounter (since 08/07/2023) Over the past 2 weeks have you felt down, depressed, or hopeless? Negative Over the past two weeks, have you felt little interest or pleasure in doing things?? Negative Feeling nervous, anxious or on edge 0-Not at all Not being able to stop or control worrying 0-Not al all Anxiety Pre-Screening Total (If >/= 3 additional questions will be reviewed) 0 Genetic Screening: Partner present: No Patient verbalized knowledge of partner family health history: Yes Do you or your partner have any personal or family history of defects not previously discussed: No Do you have history of a complicated by anomaly, genetic condition, or demise: No ACOG Recommended Screening Screening for early gestational diabetes testing: Criteria for early testing requires elevated BMI plus one other risk factor: No weight on file for this encounter. (risk factor if > than 25 or 23 in Americans) Additional risk factors: None She does not meet ACOG criteria for early gestational DM screening. Screening for low dose aspirin use for the prevention of pre-eclampsia: Low dose aspirin should be considered if the patient has one high or two moderate risk factors: High risk factors: None Moderate risk ractors: None She will discuss with provider if she meet criteria for low dose ASA Marital Status: Partner: Name: Juan Manuel Sanford Age: 28 Occupation: Self employed [employer] Gender: Male History of STDs: None PAST MEDICAL HISTORY Diagnosis Date Chlamydia age 16 Hemorrhoid PAST SURGICAL HISTORY Procedure Laterality Date DELIVERY ONLY 06/19/2021 LTCS NEXPLANON INSERTION Left 08/10/2021 removed 08/14/2022 PAST SURGICAL HISTORY OF LEFT BIG TOE SURGERY at age 16 Current Outpatient Medications Medication Sig Dispense Refill amoxicillin (AMOXIL) 875 mg tablet (more content not included)... [facility] 08-08-2023 Miscellaneous Notes DISTANCE HEALTH VISIT This Team Access Model visit is a phone encounter. It required patient-provider interaction for the medical decision making as documented below. Radha Sanford is a 23 year old female seen for PNOB. Patient has a history of a for intolerance to labor. She states she believes she wants to have a . EMMIs on and ordered and patient is asked to watch these prior to her new OB appointment. Patient states she has had a tooth ache and went to her dentist and her dentist sent her to urgent care. She is currently on an antibiotic and is feeling better. Dental Dental letter sent to patient and MyChart.discussed importance of finishing all the medication and to be seen by dentist for follow-up. Patient is complaining of nausea and occasional vomiting in that is resolving the last 2 weeks. Dietary considerations discussed . Advised patient to call/come in if she is unable to keep any food or fluids down in a 24-hour period. Father the baby sister born with Down syndrome. Patient desires aneuploidy screening. States that she probably will do the maternity 21 test and not the nuchal ultrasound. I have advised her of time limitations for nuchal ultrasound if she decides to do it. Contact information for integrated [facility] given to patient to check on insurance coverage. Patient considering genetic carrier screening testing. Contact information for myriad labs given to patient to check on insurance coverage.Tennille Govea RN documented in this encounter [facility] 08-08-2023 History of Presen t illness Narrative INITIAL OB ASSESSMENT OB Provider: Tennille Govea RN HPI: Radha is a 23 year old White here to establish Obstetrical Care. Patient's last menstrual period was 05/19/2023 (exact date). from OB Dating Form. Cycles regular was planned Complaints: None OB History T1 L1 SAB1 IAB0 Ectopic0 Multiple0 Live Births1 # 1 - Date: 05/2020, Sex: None, Weight: None, GA: 5w0d, Delivery: None, Apgar1: None, Apgar5: None, Living: None, Comments: Patient states that it was a chemical # 2 - Date: 06/19/21, Sex: Male, Weight: 7 lb 2 oz (3.232 kg), GA: 41w2d, Delivery: , Low Transverse, Apgar1: None, Apgar5: None, Living: Living, Comments: postdates induction, c/s for intolerance, EBL 800mL, loose nuchal cord x1 # 3 - Date: None, Sex: None, Weight: None, GA: None, Delivery: None, Apgar1: None, Apgar5: None, Living: None, Comments: None Previous history: Prior : yes x 1 History of 4th degree laceration: No History of shoulder dystocia: No History of Hypertensive disorders including pre-eclampsia, chronic hypertension or gestational hypertension: No History of gestational diabetes: No Patient's Risk Screening for delivery: Have you had a prior mora between 20w and 36w6d?: No MEDICAL/PSYCHOSOCIAL HISTORY: History of hemorrhage or bleeding concerns: No Thyroid Disease: No History of chronic hypertension: No History of pre-existing diabetes: No ABO/RH(D) Date Value Ref Range Status 11/21/2020 A POSITIVE Final No weight on file for this encounter. History of abnormal pap: No Prior treatment for cervical dysplasia: none. History of STDs: None Tobacco use: No Caffeine use: No Drug use: No Alcohol use: No Multivitamin with Folic acid: Yes Temple or heritage: No Would refuse blood transfusion if medically necessary: No Are you currently employed? No Do you have any history of depression, anxiety, PTSD, eating disorders or other mood problems: No Do you have any safety concerns or history of traumatic events that you would like to discuss with your provider: No SDOH Screening: How often does this describe you? I don't have enough money to pay my bills: Never Within the past 12 months, have you worried that your food would run out before you had money to buy more: Never In the past 12 months, has lack of reliable transportation kept you from going to medical appointments or work, or from keeping things needed for daily living: Never In the past 12 months, have you had any concerns about having a place to live, or about the condition or quality of your housing: Never Are there any cultural or spiritual needs we should be aware of: No Depression/Anxiety Screening: denies symptoms of depression. OB Depression and Anxiety Screening- This Encounter (since 08/07/2023) Over the past 2 weeks have you felt down, depressed, or hopeless? Negative Over the past two weeks, have you felt little interest or pleasure in doing things? Negative Feeling nervous, anxious or on edge 0-Not at all Not being able to stop or control worrying 0-Not al all Anxiety Pre-Screening Total (If >/= 3 additional questions will be reviewed) 0 Genetic Screening: Partner present: No Patient verbalized knowledge of partner family health history: Yes Do you or your partner have any personal or family history of defects not previously discussed: No Do you have history of a complicated by anomaly, genetic condition, or demise: No ACOG Recommended Screening Screening for early gestational diabetes testing: Criteria for early testing requires elevated BMI plus one other risk factor: No weight on file for this encounter. (risk factor if > than 25 or 23 in Americans) Additional risk factors: None She does not meet ACOG criteria for early gestational DM screening. Screening for low dose aspirin use for the prevention of pre-eclampsia: Low dose aspirin should be considered if the patient has one high or two moderate risk factors: High risk factors: None Moderate risk ractors: None She will discuss with provider if she meet criteria for low dose ASA Marital Status: Partner: Name: Juan Manuel Sanford Age: 28 Occupation: Self employed carpentry Gender: Male History of STDs: None PAST MEDICAL HISTORY Diagnosis Date Chlamydia age 16 Hemorrhoid PAST SURGICAL HISTORY Procedure Laterality Date DELIVERY ONLY 06/19/2021 LTCS NEXPLANON INSERTION Left 08/10/2021 removed 08/14/2022 PAST SURGICAL HISTORY OF LEFT BIG TOE SURGERY at age 16 Current Outpatient Medications Medication Sig Dispense Refill amoxicillin (AMOXIL) 875 mg tablet 181-iron fum-folate 15 mg iron- 1,750 mcg DFE tab Take by mouth. etonogestrel (NEXPLANON) subdermal implant 68 mg 1 Each by SUBDERMAL route as directed. (Patient not taking: Reported on 08/08/2023) 1 Each 0 Ferrous Sulfate (SLOW FE) 142 mg (45 mg iron) TbER Take 3 tablets by mouth once daily. (Patient not taking: Reported on 07/31/2021 ) 30 tablet 1 PNV Comb No.59/Iron/FA/DHA (-DHA ORAL) Take by mouth. (Patient not taking: Reported on 08/14/2022) No current facility-administered medications for this visit. Allergies As of Date: 08/08/2023 (No Known Allergies) Fully Assessed 08/08/2023 Does patient have penicillin allergy: No documented in this encounter [facility] 08-06-2023 History of Presen t illness Narrative Images from the original note were not included. 23 y.o. female presents for evaluation of left upper molar pain and gum swelling that has been ongoing for the past week. Pt was at dentist today but they would not evaluate her as she is . Denies fever, n/v/d, fatigue, headache or any other associated symptoms. No otc meds for symptoms. Pt is 11 weeks . Vitals: 08/06/23 1646 BP: 117/73 Pulse: 62 Resp: 16 Temp: 36.6 C (97.8 F) SpO2: 100% No Known Allergies Medication Documentation Review Audit Reviewed by Coral Bauer MA (Dumper) on 08/06/23 at 1650 Medication Order Taking? Sig Documenting Provider Last Dose Status No Medications to Display History reviewed. No pertinent past medical history. Past Surgical History: Procedure Laterality Date SECTION, CLASSIC ROS See HPI Physical Exam Vitals and nursing note reviewed. Constitutional: Appearance: Normal appearance. HENT: Nose: Nose normal. Mouth/Throat: Mouth: Mucous membranes are moist. Dentition: Dental tenderness and gingival swelling present. Eyes: Conjunctiva/sclera: Conjunctivae normal. Pupils: Pupils are equal, round, and reactive to light. Skin: General: Skin is warm and dry. Neurological: General: No focal deficit present. Mental Status: She is alert and oriented to person, place, and time. Psychiatric: Mood and Affect: Mood normal. Behavior: Behavior normal. Assessment/Plan/MDM Radha was seen today for dental pain. Diagnoses and all orders for this visit: Dental infection (Primary) - amoxicillin (Amoxil) 875 mg tablet; Take 1 tablet (875 mg) by mouth 2 times a day for 7 days. Gingival swelling - amoxicillin (Amoxil) 875 mg tablet; Take 1 tablet (875 mg) by mouth 2 times a day for 7 days. Encouraged pt to use otc Tylenol and follow up with dentist SRIKANTH after establishing with [employer] as required by dentist. Patient's clinical presentation is otherwise unremarkable at this time. Patient is discharged with instructions to follow-up with primary care or seek emergency medical attention for worsening symptoms or any new concerns. Roberta Soliman CNP [facility] [phone] documented in this encounter [facility] Work Phone: 08-14-2022 Instructions Darling Harkins APRN.CNP - 08/14/2022 2:52 PM EDT vitamin with folic acid 0.4 mg daily. documented in this encounter [facility] 08-14-2022 History of Presen t illness Narrative Mold Inspector offered: Patient declines. Radha is a 22 year old who presents for Nexplanon removal for desires conception. UNIVERSAL PROTOCOL / SAFETY CHECKLIST Procedure to be Performed: Nexplanon removal Sign In: A Moment of CARE was completed. Personnel directly involved with the procedure wore the appropriate PPE (Personal Protective Equipment). Patient/Surrogate Stated/Verified: PATIENT VERIFIED(optional for EMERGENT procedures): Patient name, Date of , Relevant allergies, and The intended procedure Time Out Communication: Intended patient and procedure match the source documents. Consent documented and matches the intended procedure. Medications required for procedure verified. Sign Out: SIGN OUT (optional for EMERGENT procedures): Post-procedure follow-up management communicated and Plan of Care Visit completed when applicable. Darling Harkins APRN.CALL CENTER NURSE TECHNIQUE: Patient placed in supine position with left arm bent at the elbow and placed over the head. Skin cleansed with betadine. 2mL of 1% lidocaine with epi injected subQ along insertion site. Scalpel used to made a 5mm stab incision superficially at distal end of Nexplanon. Device removed under sterile technique with a small hemostat. Sterile pressure dressing applied. A&P: 22 year old here for Nexplanon removal Nexplanon removed intact without difficulty. The patient was instructed to remove the dressing after 24 hours. Happy if occurs but not actively attempting Darling Harkins APRN.CALL CENTER NURSE documented in this encounter [facility] 08-06-2022 Miscellaneous Notes Nexplanon removal scheduled for 08/14/22. Please file order to attach to appointment. Mary Garcia RN documented in this encounter [facility] documented as of this encounter (statuses as of 08/13/2023) [facility]04-05-2021 History of Past illness Narrative* Problem Noted Date Diagnosed Date Resolved Date Pyelectasis of fetus on ultrasound 01/16/2021 08/12/2023 Overview: 04/20/21 - RESOLVED on US - Lisa Zambrano MD 01/17/21-BRIEF MFM CONSULT: reviewed the finding of bilateral renal pyelectasis along with potential causes. Repeat sonographic assessment of the renal pelvises is recommended at 32 weeks and was ordered today. Should pelviectasis persist at the time of follow-up evaluation, evaluation is recommended. Coral Mora APRN.CNM 01/16/21-Bilateral pyelectasis,awaiting official US report and recommendations. Coral Mora APRN.CNM History of herpes genitalis 10/18/2020 05/05/2021 Overview: 10/18/20 - only outbreak was 4 years ago. Plan for prophylaxis at 36 weeks. Lisa Zambrano MD documented as of this encounter (statuses as of 08/13/2023) [facility]21 History of Past illness Narrative* Problem Noted Date Diagnosed Date Resolved Date Pyelectasis of fetus on ultrasound 01/16/2021 08/12/2023 Overview: 04/20/21 - RESOLVED on US - Lisa Zambrano MD 01/17/21-BRIEF [facility] CONSULT: reviewed the finding of bilateral renal pyelectasis along with potential causes. Repeat sonographic assessment of the renal pelvises is recommended at 32 weeks and was ordered today. Should pelviectasis persist at the time of follow-up evaluation, evaluation is recommended. Coral Mora APRN.CNM 01/16/21-Bilateral pyelectasis,awaiting official US report and recommendations. Coral Mora APRN.CNM History of herpes genitalis 10/18/2020 05/05/2021 Overview: 10/18/20 - only outbreak was 4 years ago. Plan for prophylaxis at 36 weeks. Lisa Zambrano MD documented as of this encounter (statuses as of 08/13/2023) [facility] History of Past illness Narrative* Problem Noted Date Diagnosed Date Resolved Date Pyelectasis of fetus on ultrasound 01/16/2021 08/12/2023 Overview: 04/20/21 - RESOLVED on US - Lisa Zambrano MD 01/17/21-[facility]RIEF [facility] CONSULT: reviewed the finding of bilateral renal pyelectasis along with potential causes. Repeat sonographic assessment of the renal pelvises is recommended at 32 weeks and was ordered today. Should pelviectasis persist at the time of follow-up evaluation, evaluation is recommended. Coral Mora APRN.CNM 01/16/21-Bilateral pyelectasis,awaiting official US report and recommendations. Coral Mora APRN.CNM History of herpes genitalis 10/18/2020 05/05/2021 Overview: 10/18/20 - only outbreak was 4 years ago. Plan for prophylaxis at 36 weeks. Lisa Zambrano MD documented as of this encounter (statuses as of 08/20/2023) [facility] History of Past illness Narrative* Problem Noted Date Diagnosed Date Resolved Date Pyelectasis of fetus on ultrasound 01/16/2021 08/12/2023 Overview: 04/20/21 - RESOLVED on US - Lisa Zambrano MD 01/17/21-BRIEF [facility] CONSULT: reviewed the finding of bilateral renal pyelectasis along with potential causes. Repeat sonographic assessment of the renal pelvises is recommended at 32 weeks and was ordered today. Should pelviectasis persist at the time of follow-up evaluation, evaluation is recommended. Coral Mora APRN.CNM 01/16/21-Bilateral pyelectasis,awaiting official US report and recommendations. Coral Mora APRN.CNM History of herpes genitalis 10/18/2020 05/05/2021 Overview: 10/18/20 - only outbreak was 4 years ago. Plan for prophylaxis at 36 weeks. Lisa Zambrano MD documented as of this encounter (statuses as of 09/17/2023) [facility] History of Past illness Narrative* Problem Noted Date Diagnosed Date Resolved Date Pyelectasis of fetus on ultrasound 01/16/2021 08/12/2023 Overview: 04/20/21 - RESOLVED on US - Lisa Zambrano MD 01/17/21-[facility]EF [facility] CONSULT: reviewed the finding of bilateral renal pyelectasis along with potential causes. Repeat sonographic assessment of the renal pelvises is recommended at 32 weeks and was ordered today. Should pelviectasis persist at the time of follow-up evaluation, evaluation is recommended. Coral Mora APRN.CNM 01/16/21-Bilateral pyelectasis,awaiting official US report and recommendations. Coral Mora APRN.CNM History of herpes genitalis 10/18/2020 05/05/2021 Overview: 10/18/20 - only outbreak was 4 years ago. Plan for prophylaxis at 36 weeks. Lisa Zambrano MD documented as of this encounter (statuses as of 11/29/2023) [facility] History of Past illness Narrative* Problem Noted Date Diagnosed Date Resolved Date Pyelectasis of fetus on ultrasound 01/16/2021 08/12/2023 Overview: 04/20/21 - RESOLVED on US - Lisa Zambrano MD 01/17/21-BRIEF [facility] CONSULT: reviewed the finding of bilateral renal pyelectasis along with potential causes. Repeat sonographic assessment of the renal pelvises is recommended at 32 weeks and was ordered today. Should pelviectasis persist at the time of follow-up evaluation, evaluation is recommended. Coral Mora APRN.CNM 01/16/21-Bilateral pyelectasis,awaiting official US report and recommendations. Coral oMra APRN.CNM History of herpes genitalis 10/18/2020 05/05/2021 Overview: 10/18/20 - only outbreak was 4 years ago. Plan for prophylaxis at 36 weeks. Lisa Zambrano MD documented as of this encounter (statuses as of 12/04/2023) [facility] History of Past illness Narrative* Problem Noted Date Resolved Date History of herpes genitalis 10/18/202004/14 Overview: 10/18/20 - only outbreak was 4 years ago. Plan for prophylaxis at 36 weeks. Lisa Zambrano MD documented as of this encounter (statuses as of 08/06/2022) [facility] History of Past illness Narrative* Problem Noted Date Resolved Date History of herpes genitalis 10/18/2020 07/2 12/2020 Overview: 10/18/20 - only outbreak was 4 years ago. Plan for prophylaxis at 36 weeks. Lisa Zambrano MD documented as of this encounter (statuses as of 08/14/2022) [facility] History of Past illness Narrative* Problem Noted Date Diagnosed Date Resolved Date History of herpes genitalis 10/18/2020 05/05/2021 Overview: 10/18/20 - only outbreak was 4 years ago. Plan for prophylaxis at 36 weeks. Lisa Zambrano MD documented as of this encounter (statuses as of 08/08/2023) [facility] History of Past illness Narrative* Problem Noted Date Diagnosed Date Resolved Date History of herpes genitalis 10/18/2020 05/05/2021 Overview: 10/18/20 - only outbreak was 4 years ago. Plan for prophylaxis at 36 weeks. Lisa Zambrano MD documented as of this encounter (statuses as of 08/08/2023) [facility] Diagnosis Nexplanon removal- Primary Surveillance of previously prescribed implantable subdermal contraceptive [facility] Diagnosis Encounter for Nexplanon removal- Primary Surveillance of previously prescribed implantable subdermal contraceptive [facility] Diagnosis Dental infection- Primary Gingival swelling documented in this encounter [facility] Work Phone: Evaluation note* Diagnosis with history of section, antepartum- Primary Tooth infection Acute apical periodontitis of pulpal origin Nausea and vomiting during Family history of Down syndrome Family history of congenital anomalies documented [facility] Diagnosis Supervision of high risk in first trimester- Primary Unspecified high-risk with uncertain dates in first trimester [facility] Diagnosis with uncertain dates in first trimester- Primary Supervision of high risk in first trimester Unspecified high-risk [facility] Diagnosis with history of section, antepartum- Primary Tooth infection Acute apical periodontitis of pulpal origin Nausea and vomiting during Family history of Down syndrome Family history of congenital anomalies [facility] Diagnosis 13 weeks gestation of - Primary state, incidental Encounter for supervision of normal first in second trimester Supervision of normal first Rubella non-immune status, antepartum Other specified complication, antepartum [facility] Diagnosis 27 weeks gestation of - Primary state, incidental Supervision of high risk in second trimester Unspecified high-risk Diarrhea, unspecified type Bloating Flatulence, eructation, and gas pain Abdominal cramping Abdominal pain, unspecified site documented [facility]* Diagnosis Elevated glucose tolerance test- Primary Impaired glucose tolerance test documented in this encounter [facility] for referral (narrative)* Outpatient Procedure (Routine) - Pending Review Specialty Diagnoses / Procedures Referred By Daysi ambriz Referred To Contact [facility] Diagnoses Nexplanon removal Procedures NEXPLANON REMOVAL REMOVAL NON-BIODEGRADABLE DRUG DELIVERY IMPLANT Darling Harkins APRN.CNP [address] [place] [address] [facility] [address] [place] [address] Referral ID Status Reason Start Date Expiration Date Visits Requested Visits Authorized [id number] Pending Review Auto-Generat ed Referral 2 08/06/2023 1 1 [facility] for referral (narrative)* Diagnostic Procedure Only (Routine) - Pending Review Specialty Diagnoses / Procedures Referred By Daysi ambirz Referred To Contact [facility] Diagnoses Supervision of high risk in first trimester with uncertain dates in first trimester Procedures NUCHAL TRANSLUCENCY WHI US NUCHAL TRANSLUCENCY 1ST GESTATION Coral Mora APRN.CNM [address] [place] [address] [facility] [address] [place] [address] Referral ID Status Reason Start Date Expiration Date Visits Requested Visits Authorized [id number] Pending Review Auto-Generat ed Referral 3 08/11/2024 1 1 * Diagnostic Procedure Only (Routine) - Pending Review Specialty Diagnoses / Procedures Referred By Daysi ambriz Referred To Contact [facility] Diagnoses Supervision of high risk in first trimester with uncertain dates in first trimester Procedures OBSTETRIC ULTRASOUND WHI US PREG UTERUS AFTER 1ST TRIMEST GESTATION Coral Mora APRN.CNM [address] [place] [address] [facility] [address] [place] [address] Referral ID Status Reason Start Date Expiration Date Visits Requested Visits Authorized [id number] Pending Review Auto-Generat ed Referral 3 08/11/2024 1 1 [facility] Summary Purpose Family History No Family History Records FoundNo Family History Records FoundNo Family History Records FoundNo Family History Records Found Advance Directives No Advanced Directives Records FoundNo Advanced Directives Records FoundNo Advanced Directives Records FoundNo Advanced Directives Records Found Health Concerns Problem Noted Date Diagnosed Date [facility] Education - [facility] 08/12/2023 [place] - [place] 08/12/2023 Problem Noted Date Diagnosed Date [facility] Education - [facility] 08/12/2023 [place] - [place] 08/12/2023 Problem Noted Date Diagnosed Date [facility] Education - [facility]ON 08/12/2023 [place] - [place] 08/12/2023 Problem Noted Date Diagnosed Date [facility] Education - [facility]ON 08/12/2023 [place] - [place] 08/12/2023 Problem Noted Date Diagnosed Date [facility] Education - COMMON 08/12/2023 Education - [place] 08/12/2023 Reason for Referral Specialty Diagnoses / Procedures Referred By Daysi ambriz Referred To Contact Gastroenterology Diagnoses 27 weeks gestation of Diarrhea, unspecified type Bloating Abdominal cramping Procedures CONSULT TO GASTROENTEROLOGY OFFICE/OUTPATIENT NEW HIGH MDM 60 MINUTES Coral Mora APRN.CNM [address] [place] [address] Referral ID Status Reason Start Date Expiration Date Visits Requested Visits Authorized [id number] Authorized PCP Requested Referral 11/29/2023 11/28/2024 1 1 Additional Source Comments INFORMATION SOURCE (unrecogn ized section and content) DATE CREATED AUTHOR AUTHOR'S ORGANIZ ATION 04/09/2018 Deyanira menjivar DATE CREATED AUTHOR AUTHOR'S ORGANIZ ATION 08/08/2023 [facility] DATE CREATED AUTHOR AUTHOR'S ORGANIZ ATION 12/01/2023 [facility] Source Comments (unrecognize d section and content) In the event this informatio n is protected by the Federal Confidentiality of Alcohol and Drug Abuse Patient Records regulations: The Federal rules restrict any use of the information to criminally investigate or prosecute any alcohol or drug abuse patient.[facility] the event this information is protected by the Federal Confidentiality of Alcohol and Drug Abuse Patient Records regulations: The Federal rules restrict any use of the information to criminally investigate or prosecute any alcohol or drug abuse patient.[facility] the event this information is protected by the Federal Confidentiality of Alcohol and Drug Abuse Patient Records regulations: The Federal rules restrict any use of the information to criminally investigate or prosecute any alcohol or drug abuse patient.[facility] the event this information is protected by the Federal Confidentiality of Alcohol and Drug Abuse Patient Records regulations: The Federal rules restrict any use of the information to criminally investigate or prosecute any alcohol or drug abuse patient.[facility] the event this information is protected by the Federal Confidentiality of Alcohol and Drug Abuse Patient Records regulations: The Federal rules restrict any use of the information to criminally investigate or prosecute any alcohol or drug abuse patient.[facility] the event this information is protected by the Federal Confidentiality of Alcohol and Drug Abuse Patient Records regulations: The Federal rules restrict any use of the information to criminally investigate or prosecute any alcohol or drug abuse patient.[facility] the event this information is protected by the Federal Confidentiality of Alcohol and Drug Abuse Patient Records regulations: The Federal rules restrict any use of the information to criminally investigate or prosecute any alcohol or drug abuse patient.[facility] the event this information is protected by the Federal Confidentiality of Alcohol and Drug Abuse Patient Records regulations: The Federal rules restrict any use of the information to criminally investigate or prosecute any alcohol or drug abuse patient.[facility] the event this information is protected by the Federal Confidentiality of Alcohol and Drug Abuse Patient Records regulations: The Federal rules restrict any use of the information to criminally investigate or prosecute any alcohol or drug abuse patient.[facility] the event this information is protected by the Federal Confidentiality of Alcohol and Drug Abuse Patient Records regulations: The Federal rules restrict any use of the information to criminally investigate or prosecute any alcohol or drug abuse patient.[facility] the event this information is protected by the Federal Confidentiality of Alcohol and Drug Abuse Patient Records regulations: The Federal rules restrict any use of the information to criminally investigate or prosecute any alcohol or drug abuse patient.[facility] Reason for Visit (unrecogniz ed section and content) Reason Comments nexplanon removal Specialty Diagnoses / Procedures Referred By Daysi ambriz Referred To Contact [facility] Diagnoses Nexplanon removal Procedures NEXPLANON REMOVAL REMOVAL NON-BIODEGRADABLE DRUG DELIVERY IMPLANT ETONOGESTREL IMPLANT SYSTEM Darling Harkins APRN.CALL CENTER NURSE [address] [place] [address] [facility] [address] [place] [address] Referral ID Status Reason Start Date Expiration Date V isits Requested Visits Authorized [id number] Closed Auto-Generate d Referral 08/07/2022 10/13/2022 1 1 Reason Comments Dental Pain DENTAL PAIN ON TOP L EFT SIDE X 1 WEEK Reason Comments Care Reason Comments Care Reason Comments PRAF Initial PRAF Reason Onset Date Comments Care 08/19/2023 Reason Comments Letter Reason Onset Date Comments Care 11/29/2023 Reason Comments Results Care Teams (unrecognized sec tion and content) FOR RECORDS PERTAINING TO PATIENTS WHO ARE OR HAVE BEEN ENROLLED IN A CHEMICAL DEPENDENCY/SUBSTANCEABUSE PROGRAM, SOME INFORMATION MAY BE OMITTED. This clinical summary was aggregated from multiple sources. Caution should be exercised in using it in the provision of clinical care. This summary normalizes information from multiple sources, and as a consequence, information in this document may materially change the coding, format and clinical context of patient data. In addition, data may be omitted in some cases. CLINICAL DECISIONS SHOULD BE BASED ON THE PRIMARY CLINICAL RECORDS. [employer] provides no warranty or guarantee of the accuracy or completeness of information in this document.
[2023-12-09 10:51] LABS: Glucose GTT-Gestation. Fasting 78 mg/dL (<105)
[2023-12-09 11:58] LABS: Glucose GTT-Gestational 1 Hr 167 mg/dL (<190)
[2023-12-09 13:20] LABS: Glucose GTT-Gestational 2 Hr 102 mg/dL (<165)
[2023-12-09 13:57] LABS: Glucose GTT-Gestational 3 Hr 104 L (<145)
== END | disposition home or self-care (01) ==
LOC: LAB 09:50
PROVIDERS: Referring Provider Nurse Practitioner Women's Health; Visit Provider Nurse Practitioner Women's Health
DX: R73.09 Other abnormal glucose (principal)
CPT/HCPCS: 36415; 82951; 82952

== ENCOUNTER 2024-02-22 13:27 | Outpatient (CLI) | payer MEDICAID, SELFPAY ==
[2024-02-22 13:44] VITALS: BP 102/57; PULSE 63; PULSE 66; RESP 16; TEMP 36.1; O2SAT 100
[2024-02-22 13:45] VITALS: BMI 23.4
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
== END 2024-02-22 17:36 | disposition home or self-care (01) ==
LOC: OBT 13:39 → WP 13:41
PROVIDERS: Visit Provider Obstetrics & Gynecology
DX: O9A.213 Injury, poisoning and certain other consequences of external causes complicating pregnancy, third trimester (principal); Z3A.39 39 weeks gestation of pregnancy; V43.92XA Unspecified car occupant injured in collision with other type car in traffic accident, initial encounter
CPT/HCPCS: 59025; 59050; 99221; G0378

== ENCOUNTER 2024-03-03 07:28 | Inpatient (IN) | payer MEDICAID, SELFPAY ==
[2024-03-03] VITALS (22 sets, daily range): BP systolic 95–132; BP diastolic 53–66; PULSE 68–93; RESP 14–20; TEMP 36.7–37.4; O2SAT 97–98; BMI 23.8
[2024-03-03] MEDS: Lactated Ringers 1,000 ML 999 ML IV (07:50)
[2024-03-03] MEDS: CHLORHEXIDINE GLUC 2% CLOTH 1 EACH TOWELETTE TOPICAL (08:14)
[2024-03-03 08:15] LABS: Absolute Lymphocyte Count 1.43 X10^3/uL (0.83-4.51); Absolute Neutrophil Count 12.4 X10^3/uL (2.0-7.7); Basophil# 0.05 X10^3/uL; Basophil% 0.3 % (0-1); Eosinophil# 0.02 X10^3/uL; Eosinophils% 0.1 % (0-5); Hematocrit 33.3 % (37-47); Hemoglobin 11.3 g/dL (12.0-15.0); Lymphocyte # 1.43 X10^3/ul (0.83-4.51); Lymphocyte % 9.7 % (19-41); Mean Corp Hgb Conc 33.9 g/dL (32-36); Mean Corpuscular Hgb 29.6 pg (27.0-32.0); Mean Corpuscular Volume 87.2 fL (81-99); Mean Platelet Vol. 9.2 fl (6.2-12.0); Monocyte% 4.7 % (0-10); NRBC Flagged by Analyzer 0 % (0-5); Neutrophil # 12.41 X10^3/uL (2.7-7.7); Neutrophil % 84.2 % (47-70); Platelet Count 237 K/mm3 (150-450); RBC Distribution Width CV 13.2 % (11.6-14.6); RBC Distribution Width SD 41.2 fl (35.1-43.9); Red Blood Count 3.82 M/mm3 (4.2-5.4); White Blood Count 14.8 K/mm3 (4.4-11.0)
--- NOTE | 2024-03-03 09:03 | PCM.HP.OB ---
HPI - General General Date of Admission: 03/03/24 HPI Narrative NICHOL WALLACE, is a 23 F who presents 41w2d by LMP. JOSÉ MIGUEL: 02/23/24. Presents in labor with strong, painful contractions. Thinks SROM at home around 0230 while sitting on toilet at home, pink tinged fluid. PFSH PFSH Medical History (Updated 03/03/24 @ 09:11 by Evelyn Mora CNM) Chlamydia Family history of hearing loss at age younger than 7 years Home Medications ?Medication ?Instructions ?Recorded ?Last Taken ?Type ovxhefag-gzb-Am-FA 1 mg 1 tab PO DAILY 06/17/21 02/21/24 21:00 History tablet 1 TAB acetaminophen 500 mg tablet 1,000 mg (2 x 500 mg) PO Q6H pain 06/20/21 Unknown Rx #0 tabs Allergy/AdvReac Type Severity Reaction Status Date / Time No Known Allergies Allergy Verified 03/03/24 07:45 Surgical History (Updated 03/03/24 @ 08:19 by Teri Cote) Previous section History of surgery [place] teeth removed Social History Smoking Status: Never smoker History Elective abortions Hx Para 1 Spontaneous abortions Hx # Term Pregnancies Ectopic pregnancies Hx # Pregnancies Multiple births # of living children NST FHR Rate Baby A Baseline: 135 Variability:: Moderate Accelerations:: 15 x 15 Decelerations:: None FHR Category:: Category I Uterine Activity:: Every 6 minutes, strong Vital Signs Vital Signs Vital Signs: 03/03/24 07:05 03/03/24 07:05 03/03/24 07:05 Temperature 98.4 F Temperature Source Temporal Pulse Rate Respiratory Rate 18 Blood Pressure BP Systolic BP Diastolic Pulse Ox 03/03/24 07:08 03/03/24 07:08 03/03/24 07:09 Temperature Temperature Source Pulse Rate 72 Respiratory Rate Blood Pressure 114/60 BP Systolic 114 BP Diastolic 60 Pulse Ox 97 03/03/24 07:09 03/03/24 08:55 03/03/24 08:55 Temperature Temperature Source Pulse Rate 69 74 Respiratory Rate Blood Pressure 125/66 H BP Systolic 125 BP Diastolic 66 Pulse Ox 03/03/24 08:55 03/03/24 08:55 03/03/24 08:55 Temperature Temperature Source Temporal Pulse Rate 72 Respiratory Rate 18 Blood Pressure BP Systolic BP Diastolic Pulse Ox 03/03/24 08:55 03/03/24 08:55 Temperature 99.0 F Temperature Source Pulse Rate Respiratory Rate Blood Pressure BP Systolic BP Diastolic Pulse Ox 98 Weight Weight: 147 lb 6 oz Body Mass Index (BMI) 23.8 Physical Exam Const alert and oriented x3 General Appearance: cooperative Orientation / Consciousness: awake, oriented to person, oriented to place and oriented to time Exam Limitations: no limitations HEENT normocephalic Head and Scalp: normal to inspection, normocephalic and atraumatic Face and Sinus: normal facial exam Eyes General Eye: normal appearance of both eyes Neck full ROM Chest Chest: symmetrical chest wall rise Resp normal respiratory effort and normal air movement Auscultation: clear to auscultation bilaterally Cardio regular rate, regular rhythm, S1 normal heart sound, S2 normal heart sound, no murmurs, no rub, no gallops and no clicks GI normal to inspection, nondistended, normoactive bowel sounds and non-tender appearance of the vagina normal Bladder / Kidney Exam: no CVA tenderness Manual OB Exam: estimated gestational size appropriate, presentation cephalic, dilated 5.5 cm, effaced 80%, station 0 and other SROM, clear Back/Spine normal ROM Extremity normal to inspection and full ROM Skin no rashes or lesions noted Neuro oriented x3, CN's II-XII intact bilaterally and moves all extremities Sensorium / Orientation: awake, alert and oriented to person Motor Exam: clonus absent Deep Tendon Reflexes: Rt Patellar (L4): 2+ and Lt Patellar (L4): 2+ Labs Labs Labs: Blood Type A POSITIVE Antibody Screen NEGATIVE Hct 33.3 % (37-47) L Hgb 11.3 g/dL (12.0-15.0) L Syphilis Total Ab Pending Gest Glucose Tolerance MG/DL Rhogam given: No Miscellaneous Test COMMENT GBS negative RPR negative HepC negative Rubella non immune HBsAG negative HIV negative A positive GC/CT negative 1hr elevated, 3hr GTT normal Assessment & Plan (1) 41 weeks gestation of : COMMENT: 57th percentile on 01/13/24 (2) Encounter for trial of labor: (3) pyelectasis: PLAN: Plan 1) Admit to labor and delivery 2) Plans TOLAC, consent signed 3) Routine labs 4) GBS negative 5) SROM, discussed option for Pitocin if contractions space out, declines at this time 6) Desires unmedicated 7) collaborative physician and notified of patient status, above assessment and plan. in Hospital for physician in house at this time. If changed, will be present on unit.
[2024-03-03 10:32] LABS: Syphilis Antibodies Non-reactive
[2024-03-03] MEDS: Lactated Ringers 1,000 ML 50 ML IV (11:56)
[2024-03-03] MEDS: Oxytocin 15 Units/NS 250ml 15 UNITS/250 ML IV.SOLN 2 UNITS IV (12:00)
[2024-03-03] MEDS: Oxytocin 15 Units/NS 250ml 15 UNITS/250 ML IV.SOLN 83 UNITS IV (14:45)
[2024-03-03] MEDS: Lidocaine 1% (20 ml mdv) 20 ML Vial INFILT (14:45)
--- NOTE | 2024-03-03 14:58 | OP.PCM_ITS ---
Assessment & Plan (1) (vaginal after ): (2) Lactating mother: (3) Second degree perineal laceration: Maternal Data Information JOSÉ MIGUEL Calculator Estimated Delivery Date Method Current WG Current Estimate 02/23/24 Manual 41w 2d Vaginal Delivery Maternal Presentation Maternal Presentation: Active Labor Operative Information Date of Procedure: 03/03/24 Pre-Operative Diagnosis: TOLAC Post-Operative Diagnosis: , 2nd degree perineal laceration Surgery / Procedure Performed: Type of Anesthesia: None Estimated Blood Loss: 500 ml Time of Delivery: 14:12 Findings Description of Procedure: Progressed to complete with urge to push. Unmedicated. of viable male infant over 2nd degree perineal laceration.APGARS 8,9 respectively. head delivered with body immediately forthcoming. Placed on maternal abdomen, strong cry. Mouth and nares suctioned for secretions. Pitocin started for active 3rd stage management. Cord doubly clamped and cut by FOB after pulsations ceased, delayed cord clamping. Placenta delivered intact via barboza, 3 vessel cord intact. Perineum inspected and revealed 2nd degree perineal laceration. Repaired with 3.0 vicryl rapide and lidocaine. Fundus firm and hemostasis achieved. EBL 500ml . Mom and baby stable, planning to breastfeed. Family bonding well. Dr. Zambrano notified of delivery. Presentation: Vertex and DEVYN Amniotic Membrane Rupture Type: Spontaneous Amniotic Fluid Description: Clear Placental Delivery Description: Spontaneous Placenta Disposition: [facility] Cord Vessel Description: 3 Vessels Cord Entanglement: None A Gender: Male (1 minute): 8 (5 minute): 9 Delayed Cord Clamping: Yes Post Vaginal Delivery Medications Given After Delivery: IV Pitocin Episiotomy Description: None Laceration: Perineal Extension/lac and 2nd degree Complication Complications: None
--- NOTE | 2024-03-03 19:32 | NURSING ---
Bedside report given to this RN by Larry RN at this time. This RN to resume care at this time.
[2024-03-03] MEDS: Ferrous Sulfate 325 MG Tablet PO (20:20)
[2024-03-04 01:36] VITALS: BP 96/55; PULSE 70; RESP 16; TEMP 37.1; O2SAT 98
[2024-03-04 04:03] VITALS: BP 97/61; PULSE 65; RESP 16; TEMP 37; O2SAT 98
[2024-03-04 06:01] LABS: Absolute Lymphocyte Count 1.96 X10^3/uL (0.83-4.51); Absolute Neutrophil Count 9.8 X10^3/uL (2.0-7.7); Basophil# 0.04 X10^3/uL; Basophil% 0.3 % (0-1); Eosinophil# 0.06 X10^3/uL; Eosinophils% 0.5 % (0-5); Hematocrit 29.8 % (37-47); Hemoglobin 10.1 g/dL (12.0-15.0); Lymphocyte # 1.96 X10^3/ul (0.83-4.51); Lymphocyte % 14.8 % (19-41); Mean Corp Hgb Conc 33.9 g/dL (32-36); Mean Corpuscular Hgb 29.9 pg (27.0-32.0); Mean Corpuscular Volume 88.2 fL (81-99); Mean Platelet Vol. 9.4 fl (6.2-12.0); Monocyte# 1.16 X10^3/uL; Monocyte% 8.8 % (0-10); NRBC Flagged by Analyzer 0 % (0-5); Neutrophil # 9.79 X10^3/uL (2.7-7.7); Neutrophil % 74.2 % (47-70); Platelet Count 215 K/mm3 (150-450); RBC Distribution Width CV 13.2 % (11.6-14.6); RBC Distribution Width SD 42.4 fl (35.1-43.9); Red Blood Count 3.38 M/mm3 (4.2-5.4); White Blood Count 13.2 K/mm3 (4.4-11.0)
[2024-03-04 07:35] VITALS: BP 107/65; PULSE 77; RESP 16; TEMP 37.1; O2SAT 96
--- NOTE | 2024-03-04 08:55 | PCM.PN.OB ---
Subjective Subjective Doing well. Minimal pain and bleeding. Breast feeding well. Ambulating and voiding without difficulty. Objective Data Objective Data Vital Signs: Vital Signs Temp Pulse Resp BP Pulse Ox O2 Del Method 98.8 F 77 16 107/65 96 Room Air 03/04/24 07:35 03/04/24 07:35 03/04/24 07:35 03/04/24 07:35 03/04/24 07:35 03/04/24 07:35 Oxygen Delivery Method Room Air Weight: 66.848 kg Body Mass Index (BMI) 23.8 Intake & Output: Intake and Output for Last 24 Hours 03/02/24 03/03/24 03/04/24 23:59 23:59 23:59 Intake Total 1615.83 / 1615.83 Output Total 1999 Balance -384.17 / -384.17 Lab / Micro Data 03/04/24 05:45 Labs: Laboratory Results - last 24 hr 03/03/24 07:50: Syphilis Total Ab Non-reactive, Blood Type A POSITIVE, Antibody Screen NEGATIVE 03/04/24 05:45: WBC 13.2 H, RBC 3.38 L, Hgb 10.1 L, Hct 29.8 L, MCV 88.2, MCH 29.9, MCHC 33.9, RDW Std Deviation 42.4, RDW Coeff of [place] 13.2, Plt Count 215, MPV 9.4, Immature Gran % (Auto) 1.400 H, Neut % (Auto) 74.2 H, Lymph % (Auto) 14.8 L, [place] % (Auto) 8.8, Eos % (Auto) 0.5, Baso % (Auto) 0.3, Absolute Neuts (auto) 9.8 H, Absolute Lymphs (auto) 1.96, Nucleated RBC % 0 Physical Exam Const alert and no apparent distress Narrative: Fundus firm, below umbilicus. Assessment & Plan (1) (vaginal after ): (2) Second degree perineal laceration: PLAN: Plan D/C home
--- NOTE | 2024-03-04 08:57 | PCM.DC.SUM ---
Providers Date of Admission: 03/03/24 Date of Discharge: 03/04/24 Primary Care Physician: No Primary Care Phys Reason For Visit: VAGINAL DELIVERY Diagnosis Discharge Diagnosis (1) (vaginal after ): Status: Acute Code(s): O34.219 - Maternal care for unspecified type scar from previous delivery (2) Second degree perineal laceration: Status: Acute Code(s): O70.1 - Second degree perineal laceration during delivery Plan D/C home Medications at Discharge Home Medications [id number] 1 mg tablet 1 tab PO DAILY 06/17/21 acetaminophen 500 mg tablet 1,000 mg (2 x 500 mg) PO Q6H pain #0 tabs 06/20/21 Hospital Course Operations None Procedures None Summary of Care Provided Minutes Spent on Discharge: 20 Hospital Course: Arrived with SROM and labored without difficultly. Pitocin augmentation needed. without complication.No epidural Second laceration. Breast feeding on discharge. No complication . Physical Exam Const alert and no apparent distress Narrative: Fundus firm, below umbilicus. Weight / BMI Weight Weight: 66.848 kg Body Mass Index (BMI) 23.8 ABG / Lab / Microbiology Data 03/04/24 05:45 Laboratory: Laboratory Results - last 24 hr 03/03/24 07:50: Syphilis Total Ab Non-reactive, Blood Type A POSITIVE, Antibody Screen NEGATIVE 03/04/24 05:45: WBC 13.2 H, RBC 3.38 L, Hgb 10.1 L, Hct 29.8 L, MCV 88.2, MCH 29.9, MCHC 33.9, RDW Std Deviation 42.4, RDW Coeff of [place] 13.2, Plt Count 215, MPV 9.4, Immature Gran % (Auto) 1.400 H, Neut % (Auto) 74.2 H, Lymph % (Auto) 14.8 L, [place] % (Auto) 8.8, Eos % (Auto) 0.5, Baso % (Auto) 0.3, Absolute Neuts (auto) 9.8 H, Absolute Lymphs (auto) 1.96, Nucleated RBC % 0 D/C Instructions May resume sexual activity in: 6 weeks Please Follow Up With: Sarai Lord MD When: Follow up with our office in 1-2 and 6 weeks or as needed. [phone] Meaningful Use Info Meaningful Use Meaningful Use Diagnoses (Choose all that apply): None applicable Ischemic Stroke Statin Dosing Therapy Reference: STATIN DOSE THERAPY REFERENCE: * Patients > 75 years receive moderate or high dose statin therapy. * Patients 75 years or YOUNGER should receive HIGH intensity statin dose unless contraindicated. You will be required to document reason for non-treatment if statin daily dose does not meet guidelines. HIGH DOSE STATIN THERAPY DAILY Atorvastatin > than or = to 40 mg Rosuvastatin > than or = to 20 mg Amlodipine + Atorvastatin > than or = to 2.5/40 mg Ezetimibe + Simvastatin 10/80 mg Simvastatin 80mg Discharge Plan Admission Admit Date/Time: 03/03/24 07:28 Primary Reason for Your Visit: [facility] Attending Provider: Evelyn Mora Primary Care Provider: Care Physician,Sudha Primary Discharge Orders/Prescriptions Prescriptions: Continued [id number] 1 mg Tablet 1 tab PO DAILY acetaminophen 500 mg Tablet 1,000 mg PO Q6H Qty: 0 0RF Referrals / Follow Up: Care Physician,No Primary [Primary Care Provider] - Disposition Disposition (needs filled in before D/C Order can be placed): Home, Self Care
[2024-03-04] MEDS: Ibuprofen 600 MG Tablet PO (10:40)
[2024-03-04] MEDS: Ferrous Sulfate 325 MG Tablet PO (12:40)
[2024-03-04 12:44] VITALS: BP 94/62; PULSE 74; RESP 18; TEMP 37.2; O2SAT 96
[2024-03-04 16:46] VITALS: BP 94/64; PULSE 76; RESP 16; TEMP 36.8; O2SAT 96
--- NOTE | 2024-03-10 10:56 | NURSING ---
Follow up phone call made, no answer, left voicemail
--- NOTE | 2024-03-23 10:24 | NURSING ---
corrected on delivery record that patient had a successful
== END 2024-03-04 17:15 | disposition home or self-care (01) | DRG 560 ==
LOC: WPOUT 07:37 → WP 07:38
PROVIDERS: Obstetrics & Gynecology; Admitting Provider Advanced Practice Midwife; Referring Provider Advanced Practice Midwife; Visit Provider Advanced Practice Midwife
DX: O34.219 Maternal care for unspecified type scar from previous cesarean delivery (principal); Z37.0 Single live birth; O48.0 Post-term pregnancy; O70.1 Second degree perineal laceration during delivery; Z3A.41 41 weeks gestation of pregnancy
CPT/HCPCS: 59025; 59050; 85025; 86780; 86850; 86900; 86901; 99221; J7120; G0378